=== PATIENT | female | born 1940 | race Caucasian/White ===

== ENCOUNTER 2022-03-23 12:36 | Emergency (ER) | payer MEDICARE, OTHER, SELFPAY ==
--- NOTE | ~2022-03-23 | CT_ITS ---
EXAMINATION: CT ABDOMEN AND PELVIS WITHOUT CONTRAST CLINICAL INFORMATION: Diarrhea and abdominal pain COMPARISON: None TECHNIQUE: Multidetector volumetric imaging was performed from the superior aspect of the liver through the pubic symphysis. Sagittal and coronal reformatted images were obtained on the technologist's workstation. This CT examination was performed using dose optimization techniques as appropriate, variously including the following: *Automated exposure control *Adjustment of mA and/or kV according to patient size (this includes techniques or standardized protocols for targeted exams where dose is matched to indication/reason for exam; i.e. extremities or head) *Use of iterative reconstruction technique DLP: 755 mGy-cm FINDINGS: LUNG BASES: The visualized lung bases are unremarkable. 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 LIVER, GALLBLADDER, AND BILIARY TREE: The liver is normal in size, shape, and attenuation. No focal hepatic lesion or biliary ductal dilatation is present. The gallbladder contains calcifications present at the fundus, most likely gallstones. The gallbladder is otherwise unremarkable with no evidence of gallbladder wall thickening, or obvious pericholecystic inflammatory changes. PANCREAS: Unremarkable. SPLEEN: Unremarkable. ADRENAL GLANDS: A water density 2.5 cm ovoid left adrenal mass is present consistent with a benign adenoma. KIDNEYS AND URETERS: The kidneys are normal in size, shape, and attenuation. A 1.4 cm water density cyst is noted arising from the upper pole right kidney best appreciated on sagittal image 42. No further imaging or follow-up is needed. No hydronephrosis, hydroureter, or calculi seen. No perinephric stranding. BLADDER: Unremarkable. GASTROINTESTINAL TRACT: The small and large bowel are unremarkable. The appendix is unremarkable. ABDOMINAL WALL: No significant hernia is appreciated. LYMPH NODES: No retroperitoneal lymphadenopathy. VASCULAR: Marked aorta iliofemoral atherosclerotic change is present with calcified plaque but no aneurysm. PELVIC VISCERA: Unremarkable. OSSEOUS STRUCTURES: Mild degenerative changes present spine. CT/CT abdomen pelvis wo con IMPRESSION: 1. Calcifications in the gallbladder most likely gallstones rather than a calcified mass. Ultrasound could be performed for further evaluation. 2. Benign left adrenal adenoma. 3. A cause for the patient's diarrhea and abdominal pain has not been found. Fleischner guidelines were followed.
[2022-03-23 12:48] VITALS: BP 119/96; BP 128/90; PULSE 51; PULSE 85; RESP 16; TEMP 36.4; O2SAT 95; O2SAT 97; BMI 35.2
--- NOTE | 2022-03-23 12:49 | ED_ITS ---
HPI - General Adult General Chief complaint: Nausea/Vomiting/Diarrhea Stated complaint: DIARRHEA X'S 3 DAYS Time Seen by Provider: 03/23/22 12:49 Source: patient and EMS Mode of arrival: EMS Limitations: other (patient is confused at baseline) History of Present Illness HPI narrative: Patient is an 81 year old female presenting to the emergency department today with diarrhea x3 days. Patient states that she feels fine and has no complaints. Patient's states that the patient has dementia and has had diarrhea and cold sweats over the last 2 days. He states that the patient has been taking her insulin but she does not remember due to her dementia. Patient denies any dizziness, lightheadedness, abdominal pain, nausea, vomiting, fever, chills, blurry vision, double vision, loss of vision, chest pain, difficulty breathing, shortness of breath, back pain, night sweats, pain with urination, increased urinary frequency, increased urinary urgency, blood in her urine or stool, syncope or a near syncopal episode, recent trauma or falls, bowel incontinence, bladder incontinence, bowel retention, bladder retention, or any other complaints at this time. Onset (ago): day(s) (2) Severity: mild Severity scale (1-10): 1 Relieving factors: none Exacerbating factors: none Associated symptoms: denies other symptoms Treatments prior to arrival: none Related Data Allergies Allergy/AdvReac Type Severity Reaction Status Date / Time Penicillins Allergy Mild UNKNOWN Unverified 07/10/20 15:26 penicillin G Allergy Unknown Verified 12/26/18 00:00 Review of Systems Constitutional: Constitutional: Reports no additional constitutional complaints, Denies chills, Denies fever(s) and Denies night sweats Eyes: Eyes: Reports no additional eye complaints, Denies blurry vision, Denies change in vision, Denies diplopia, Denies eye discharge, Denies loss of vision and Denies eye pain ENT: Denies dizziness Cardiovascular: Cardiovascular: Reports no additional cardiovascular complaints, Denies chest pain, Denies lightheadedness, Denies Loss of Consciousness and Denies dyspnea Respiratory: Respiratory: Reports no additional respiratory complaints and Denies dyspnea Gastrointestinal: Gastrointestinal: Reports no additional gastrointestinal complaints, Denies abdominal pain, Denies melena, Denies hematochezia, Denies change in bowel habits, Denies change in stool character and Reports diarrhea Genitourinary: Genitourinary: Denies hematuria, Denies urinary frequency, Denies dysuria, Denies urinary incontinence, Denies urinary hesitancy and Denies urinary urgency Musculoskeletal: Musculoskeletal: Reports no additional musculoskeletal complaints, Denies numbness and Denies tingling Neurologic: Reports confusion, Denies dizziness, Denies loss of vision, Denies numbness and Denies tingling Psychiatric: Psychiatric: Reports no additional psychiatric complaints and Reports confusion Endocrine: Endocrine: Reports no additional endocrine complaints Hematologic/Lymphatic: Hematologic/Lymphatic: Reports no additional hematologic/lymphatic complaints Allergic/Immunologic: Allergic/Immunologic: Reports no additional allergic/immunologic complaints [facility] Past Medical History Attestation statement: The following information was validated with the patient. Source: old records reviewed Social History Social History Alcohol intake: never Smoked in Last 30 Days: No Use of substances other than those prescribed or required for medical reasons: No Advance Directives: Yes Advance Directives Information Provided: No Advance Directives on File: No Physical Exam ED Vital Signs: Vital Signs - 24 hr 03/23/22 12:48 03/23/22 13:38 03/23/22 13:59 Temperature 97.6 F 98.1 F Pulse Rate 85 85 90 Respiratory Rate 16 14 18 Blood Pressure 119/96 H 129/71 129/71 Pulse Oximetry 95 94 94 03/23/22 15:55 Temperature 97.5 F Pulse Rate 84 Respiratory Rate 18 Blood Pressure 143/79 H Pulse Oximetry 96 BMI result Body Mass Index 35.2 Const General: cooperative, no acute distress, alert, awake and confusion Nutritional Appearance: well nourished Orientation/consciousness: patient oriented x3 and confusion Limitations: no limitations HENMT Head: Yes normal to inspection and Yes atraumatic Ears: hearing grossly normal bilaterally and external ears normal General nose exam: Normal external nose present, no nasal discharge noted and no epistaxis Face and sinus: Yes normal facial exam, No abrasion and No laceration Mouth: Normal oral and palatal mucosa present, no drooling and no muffled voice Eyes General: appearance normal, both eyes and all related structures Periorbital: periorbital findings normal Eyelids: Yes eyelids normal Conjunctivae: conjunctivae normal Pupils: Equal, round and reactive pupils present EOM: EOMs intact bilaterally Neck Neck: Yes normal visual inspection, Yes full ROM and Yes no lymphadenopathy Chest Chest palpation & inspection: normal inspection of the chest Resp Effort & Inspection: normal respiratory effort and able to speak in complete sentences Auscultation: clear to auscultation bilaterally Cardio Rate: regular rate Rhythm: regular rhythm GI Inspection: Yes normal to inspection Palpation (GI): Soft to palpation, not firm, nontender, no guarding and not rigid Neuro General: patient oriented x3, moves all extremities and confusion Cranial nerves: Yes Equal, round and reactive pupils present Cognition (Neuro): normal cognition Motor exam (neuro): 5/5 motor strength present throughout Sensory Exam: Normal double simultaneous stimulation for sensation Coordination: [id number] test normal Extrem General: Yes normal to inspection, Yes full ROM and Yes capillary refill normal Psych Appearance: grossly normal Mental Status: mental status grossly normal Affect: normal affect Attitude: cooperative Thought process: Normal thought process present Thought content: Normal thought content present Insight: Good insight present (Psych) Medical Decision Making MDM Narrative Medical decision making narrative: Patient is an 81 year old female presenting to the emergency department today with diarrhea. Patient's physical exam showed a pleasantly confused individual. Patient's blood work showed a slightly elevated WBC count at 11.8, slightly elevated creatinine at 1.61, and an elevated glucose at 432. Patient's sodium was 133 however, adjusted for the elevated glucose, it is normal. Patient's abdominal CT showed no acute process. Patient was given IV fluids. I explained my physical exam findings as well as all test results to the patient and the yamilka petty's . I answered all questions asked by the patient and the patient's . The patient and her were adamant that the patient was not to stay in the hospital. Patient refused to have her blood sugar checked before being discharged. I stressed the importance of the patient taking her medication as prescribed. I stressed the importance of the patient following up with her primary care provider. I stressed the importance of the patient returning to the emergency department immediately if her symptoms were to worsen or if she were to develop any dizziness, shortness of breath, difficulty breathing, chest pain, blurry vision, loss of vision, nausea, vomiting, abdominal pain, fever, chills, back pain, or any other complaints. Patient and the patient's verbalized agreement and understanding with this treatment plan and discharge. Differential Diagnosis Differential Diagnosis: diarrhea, gastroenteritis, dehydration Medical Records Medical records reviewed: Yes I reviewed the patient's medical records. Lab Data Lab results reviewed: Yes I reviewed the patient's lab results. Result diagrams: 03/23/22 13:18 03/23/22 13:18 Labs: Lab Results 03/23/22 03/23/22 03/23/22 Range/Units 12:55 13:18 13:18 WBC 11.8 H (4.8-10.8) X10*3/uL RBC 5.17 (4.20-5.50) X10*6/uL Hgb 14.6 (12.0-16.0) g/dl Hct 44.0 (37.0-47.0) % MCV 85.1 (80.0-98.0) fL MCH 28.2 (27.0-33.0) pg MCHC 33.2 (31.0-35.0) g/dl RDW 13.2 (11.0-16.0) % Plt Count 255 (160-400) X10*3/uL MPV 10.2 (9.4-12.3) fL Immature Gran % (Auto) 0.7 H (0.0-0.4) % Neut % (Auto) 83.5 H (45-73) % Lymph % (Auto) 9.6 L (20-40) % Brewster % (Auto) 5.2 (2-11) % Eos % (Auto) 0.7 (0-4) % Baso % (Auto) 0.3 (0-2) % Lymph # (Auto) 1.1 L (1.2-4.9) X10*3/uL Brewster # (Auto) 0.6 (0.1-1.2) X10*3/uL Eos # (Auto) 0.1 (0.0-0.4) X10*3/uL Baso # (Auto) 0.0 (0.0-0.2) X10*3/uL Abs Immat Gran (auto) 0.08 H (0.00-0.03) X10*3/uL Absolute Neuts (auto) 9.9 H (2.0-8.3) x10*3/uL Absolute Nucleated RBC 0.000 (0.0-0.012) X10*3/uL Nucleated RBC % (auto) 0.0 (0.0-0.2) /100WBC Sodium 133 L (135-145) mmol/L Potassium 3.8 (3.3-5.1) mmol/L Chloride 97 (96-108) mmol/L Carbon Dioxide 23 (22-29) mmol/L Anion Gap 17 (12-20) BUN 30 H (9-16) mg/dL Creatinine 1.61 H (0.5-1.4) mg/dL Estim Creat Clear Calc 26.4 Estimated GFR 31 POC Glucose 370 H* (60-115) mg/dL Random Glucose 432 H* (60-115) mg/dL Lactic Acid (0.5-2.0) mmol/L Calcium 10.4 H (8.4-10.2) mg/dL Magnesium 1.8 (1.6-2.6) mg/dL Total Bilirubin 1.1 H (0.0-1.0) mg/dL AST 14 (5-31) U/L ALT 12 (0-31) U/L Alkaline Phosphatase 68 (39-117) U/L Total Protein 7.1 (6.5-8.0) g/dL Albumin 4.3 (3.5-5.0) g/dL Lipase 35 (8-78) U/L COVID-19 (KIM) (Negative) COVID-19 Clin Com Influenza Type A (BISMARK) (Negative) Influenza Type B (BISMARK) (Negative) Influenza A & B Note 03/23/22 03/23/22 03/23/22 Range/Units 13:18 13:43 13:43 WBC (4.8-10.8) X10*3/uL RBC (4.20-5.50) X10*6/uL Hgb (12.0-16.0) g/dl Hct (37.0-47.0) % MCV (80.0-98.0) fL MCH (27.0-33.0) pg MCHC (31.0-35.0) g/dl RDW (11.0-16.0) % Plt Count (160-400) X10*3/uL MPV (9.4-12.3) fL Immature Gran % (Auto) (0.0-0.4) % Neut % (Auto) (45-73) % Lymph % (Auto) (20-40) % Brewster % (Auto) (2-11) % Eos % (Auto) (0-4) % Baso % (Auto) (0-2) % Lymph # (Auto) (1.2-4.9) X10*3/uL Brewster # (Auto) (0.1-1.2) X10*3/uL Eos # (Auto) (0.0-0.4) X10*3/uL Baso # (Auto) (0.0-0.2) X10*3/uL Abs Immat Gran (auto) (0.00-0.03) X10*3/uL Absolute Neuts (auto) (2.0-8.3) x10*3/uL Absolute Nucleated RBC (0.0-0.012) X10*3/uL Nucleated RBC % (auto) (0.0-0.2) /100WBC Sodium (135-145) mmol/L Potassium (3.3-5.1) mmol/L Chloride (96-108) mmol/L Carbon Dioxide (22-29) mmol/L Anion Gap (12-20) BUN (9-16) mg/dL Creatinine (0.5-1.4) mg/dL Estim Creat Clear Calc Estimated GFR POC Glucose (60-115) mg/dL Random Glucose (60-115) mg/dL Lactic Acid 1.7 (0.5-2.0) mmol/L Calcium (8.4-10.2) mg/dL Magnesium (1.6-2.6) mg/dL Total Bilirubin (0.0-1.0) mg/dL AST (5-31) U/L ALT (0-31) U/L Alkaline Phosphatase (39-117) U/L Total Protein (6.5-8.0) g/dL Albumin (3.5-5.0) g/dL Lipase (8-78) U/L COVID-19 (KIM) Negative (Negative) COVID-19 Clin Com See Note Influenza Type A (BISMARK) Negative (Negative) Influenza Type B (BISMARK) Negative (Negative) Influenza A & B Note See Note Imaging Data CT scan - abdomen: Attestation: I personally reviewed and interpreted this imaging study as follows: My impression: No acute process. Radiologist's impression: EXAMINATION: CT ABDOMEN AND PELVIS WITHOUT CONTRAST? CLINICAL INFORMATION: Diarrhea and abdominal pain? COMPARISON: None? TECHNIQUE: Multidetector volumetric imaging was performed from the superior aspect of the liver through the pubic symphysis. Sagittal and coronal reformatted images were obtained on the technologist's workstation.? This CT examination was performed using dose optimization techniques as appropriate, variously including the following: *Automated exposure control *Adjustment of mA and/or kV according to patient size (this includes techniques or standardized protocols for targeted exams where dose is matched to indication/reason for exam; i.e. extremities or head) *Use of iterative reconstruction technique DLP: 755 mGy-cm FINDINGS: LUNG BASES: The visualized lung bases are unremarkable. 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 LIVER, GALLBLADDER, AND BILIARY TREE: The liver is normal in size, shape, and attenuation. No focal hepatic lesion or biliary ductal dilatation is present. The gallbladder contains calcifications present at the fundus, most likely gallstones. The gallbladder is otherwise unremarkable with no evidence of? gallbladder wall thickening, or obvious pericholecystic inflammatory changes.? PANCREAS: Unremarkable.? SPLEEN: Unremarkable.? ADRENAL GLANDS: A water density 2.5 cm ovoid left adrenal mass is present consistent with a benign adenoma.? KIDNEYS AND URETERS: The kidneys are normal in size, shape, and attenuation. A 1.4 cm water density cyst is noted arising from the upper pole right kidney best appreciated on sagittal image 42. No further imaging or follow-up is needed. No hydronephrosis, hydroureter, or calculi seen. No perinephric stranding. ? BLADDER: Unremarkable.? GASTROINTESTINAL TRACT: The small and large bowel are unremarkable. The appendix is unremarkable.? ABDOMINAL WALL: No significant hernia is appreciated.? LYMPH NODES: No retroperitoneal lymphadenopathy. VASCULAR: Marked aorta iliofemoral atherosclerotic change is present with calcified plaque but no aneurysm. PELVIC VISCERA: Unremarkable.? OSSEOUS STRUCTURES: Mild degenerative changes present spine.? CT/CT abdomen pelvis wo con IMPRESSION: 1.? Calcifications in the gallbladder most likely gallstones rather than a calcified mass. Ultrasound could be performed for further evaluation. 2.? Benign left adrenal adenoma. 3.? A cause for the patient's diarrhea and abdominal pain has not been found.? ? Fleischner guidelines were followed. Dictated By: Edinson Alvarenga MD Signed By: Electronically signed by Edinson Alvarenga MD 03/23/22 8659 Discharge Plan Discharge Clinical Impression: Gastroenteritis Patient Disposition: Home, Self-Care Instructions: Gastroenteritis (DC) Additional Instructions: Follow up with your primary care provider. Return to the emergency department immediately if your symptoms worsen or if you develop any dizziness, shortness of breath, difficulty breathing, chest pain, blurry vision, loss of vision, nausea, vomiting, abdominal pain, fever, chills, back pain, or any other complaints. Referrals: Andreas Mora MD [Primary Care Provider] - Interventions: ED Discharge Assessment Last Done: 03/23/22 16:45 Discharge Date/Time: 03/23/22 16:46 Print Language: Bangladeshi
[2022-03-23 13:20] LABS: Glucose, Whole Blood 370 mg/dL (60-115)
[2022-03-23 13:27] LABS: Basophils Percent Auto 0.3 % (0-2); Eosinophils Absolute Auto 0.1 X10*3/uL (0.0-0.4); Eosinophils Percent Auto 0.7 % (0-4); Hemoglobin 14.6 g/dl (12.0-16.0); Imm Gran Abs Auto 0.08 X10*3/uL (0.00-0.03); Imm Gran Pct Auto 0.7 % (0.0-0.4); Lymphocytes Absolute Auto 1.1 X10*3/uL (1.2-4.9); Lymphocytes Percent Auto 9.6 % (20-40); MANUAL DIFF FLAG NO; Mean Corpuscular HGB Conc 33.2 g/dl (31.0-35.0); Mean Corpuscular Hemoglobin 28.2 pg (27.0-33.0); Mean Corpuscular Volume 85.1 fL (80.0-98.0); Mean Platelet Volume 10.2 fL (9.4-12.3); Monocytes Absolute Auto 0.6 X10*3/uL (0.1-1.2); Monocytes Percent Auto 5.2 % (2-11); Neutrophils Absolute Auto 9.9 x10*3/uL (2.0-8.3); Neutrophils Percent Auto 83.5 % (45-73); Platelet Count 255 X10*3/uL (160-400); Red Blood Count 5.17 X10*6/uL (4.20-5.50); Red Cell Distribution Width 13.2 % (11.0-16.0); White Blood Count 11.8 X10*3/uL (4.8-10.8)
[2022-03-23 13:38] VITALS: BP 129/71; PULSE 85; RESP 14; TEMP 36.7; O2SAT 94
[2022-03-23 13:43] LABS: Lactic Acid 1.7 mmol/L (0.5-2.0)
[2022-03-23 13:50] LABS: Alanine Aminotransferase 12 U/L (0-31); Albumin Level 4.3 g/dL (3.5-5.0); Alkaline Phosphatase 68 U/L (39-117); Anion Gap 17 (12-20); Aspartate Amino Transferase 14 U/L (5-31); Bilirubin Total 1.1 mg/dL (0.0-1.0); Blood Urea Nitrogen 30 mg/dL (9-16); Calcium 10.4 mg/dL (8.4-10.2); Carbon Dioxide 23 mmol/L (22-29); Chloride 97 mmol/L (96-108); Creatinine Clr Calc Pharmacy 26.4; Estimated Glomerular Filt Rate 31; Glucose Random 432 mg/dL (60-115); Lipase 35 U/L (8-78); Magnesium 1.8 mg/dL (1.6-2.6); Potassium 3.8 mmol/L (3.3-5.1); Sodium 133 mmol/L (135-145); Total Protein 7.1 g/dL (6.5-8.0)
[2022-03-23] MEDS: 0.9 % Sodium Chloride 1,000 ML 999 ML IVCONT (13:58)
[2022-03-23 13:59] VITALS: BP 129/71; PULSE 90; RESP 18; O2SAT 94
[2022-03-23 14:21] LABS: COVID-19 Test Negative (Negative)
[2022-03-23 14:32] LABS: Influenza A Negative (Negative); Influenza B2 Negative (Negative)
[2022-03-23 15:55] VITALS: BP 143/79; PULSE 84; RESP 18; TEMP 36.4; O2SAT 96
--- NOTE | 2022-03-23 16:09 | PC.NURSE ---
PT PULLED OUT IV WHILE GETTING OUT OF BED. PT ASSISTED BACK TO BED MULTIPLE TIMES. RN AWARE
== END 2022-03-23 16:46 | disposition home or self-care (01) ==
PROVIDERS: Physician Assistant Medical; Emergency Provider Emergency Medicine; PCP Internal Medicine
DX: K52.9 Noninfective gastroenteritis and colitis, unspecified (principal); R11.2 Nausea with vomiting, unspecified; Z20.822 Contact with and (suspected) exposure to COVID-19
CPT/HCPCS: 74176; 80053; 82947; 83605; 83690; 83735; 85025; 87040; 87502; 87635; 96360; 99284

== ENCOUNTER 2022-04-05 13:34 | Inpatient (IN) | payer MEDICARE, OTHER, SELFPAY ==
--- NOTE | ~2022-04-05 | CT_ITS ---
EXAMINATION: NONCONTRAST HEAD CT NONCONTRAST CERVICAL SPINE CT INDICATION INFORMATION: Fall with pain COMPARISON: Head CT 06/01/2020 TECHNIQUE: Separate noncontrast CT examinations of the head and cervical spine were performed. Coronal and sagittal images were created for each examination at the technologist workstation. This CT examination was performed using dose optimization techniques as appropriate, variously including the following: *Automated exposure control *Adjustment of mA and/or kV according to patient size (this includes techniques or standardized protocols for targeted exams where dose is matched to indication/reason for exam; i.e. extremities or head) *Use of iterative reconstruction technique DLP: 1394 mGy-cm FINDINGS: HEAD: No intra or extra-axial fluid collection, hemorrhage, or mass. No ventriculomegaly. No midline shift or herniation. Basal cisterns are patent. Delgado-white matter differentiation is maintained. 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 Small remote lacunar infarct in the right caudate and lentiform nucleus, unchanged. Proportional prominence of the ventricles and sulcal spaces is consistent with mild volume loss. Patchy periventricular and deep white matter hypoattenuation is consistent with moderate small vessel ischemic changes. No calvarial fracture or soft tissue abnormality. The mastoid air cells and visualized portions of the paranasal sinuses are well aerated. Right supraclinoid ICA stent. Status post bilateral lens extractions. CERVICAL SPINE: Alignment: Minimal grade 1 anterolisthesis at C7-T1 with facet joint ankylosis at this level. No additional subluxation. Vertebra: No acute fracture. No prevertebral soft tissue swelling. Degenerative disc disease: Acquired ankylosis of the C6-C7 vertebral bodies and facets at C7-T1. Multilevel degenerative disc disease characterized by multilevel disc height loss with endplate sclerosis and proliferative change most advanced at C5-C6. Advanced multilevel bilateral facet arthrosis and uncovertebral spurring. Other findings: No cervical lymphadenopathy. Visualized major salivary glands and thyroid gland are unremarkable. Visualized lung apices are clear. CT/CT cervical spine wo con IMPRESSION: 1. No intracranial hemorrhage, calvarial fracture, or other acute intracranial abnormality. 2. No traumatic subluxation or acute cervical spine fracture.
--- NOTE | ~2022-04-05 | CT_ITS ---
EXAMINATION: CT CHEST, ABDOMEN PELVIS WITHOUT CONTRAST. CLINICAL INFORMATION: Fall and pain. COMPARISON: None TECHNIQUE: 5 mm thin axial and reformatted 3 mm thin sagittal and coronal images of chest, abdomen and pelvis were obtained without contrast. DLP 1679 FINDINGS: Chest: The lungs are well-expanded and clear of acute pneumonic process. No contusion or mass seen. There are punctate 2 mm subpleural based noncalcified nodule right upper lobe axial image 176/9, along the right minor fissure axial image 255/9. Or calcification. There is minimal dependent right basilar atelectasis or scarring. There is no pleural effusion or thickening. The thyroid lobes are symmetrical and normal. Central trachea and the bronchi widely patent. Heart size and the great vessels are normal caliber. There are small pretracheal lymph nodes. Moderate coronary artery calcifications are present. There are no abnormal axillary lymph nodes. The chest wall is unremarkable. Abdomen and pelvis: The liver is normal size, homogeneous density and contour. No focal lesion or intrahepatic ductal dilatation seen. There are multiple small gallstones without wall thickening. Visualized spleen, pancreas and right adrenal gland is unremarkable. There is a left adrenal lesion measuring 3 cm and approximately 2 Hounsfield units likely a small cyst Both kidneys are normal size, shape and position. No radiopaque renal calculi or hydronephrosis seen. Is no perinephric stranding there are vascular calcifications in left renal hilum. There is no hydronephrosis. The abdominal aorta is of normal caliber. No retroperitoneal lymph nodes or mass seen. No intra-abdominal mass or hematoma. There is scattered stool and gas seen throughout the colon without significant distention. The small bowel loops are normal caliber. Appendix is normal caliber. No obstruction or free air seen. The abdominal wall appears unremarkable. Imaging through the pelvis reveals unremarkable urinary bladder. The uterus is anteverted and appears unremarkable. Bone windows reveal no aggressive lytic or sclerotic process there is mild degenerative facet joint arthropathy L5-S1, L4-L5, L3-L4 disc levels. No lytic or sclerotic process seen. There are bilateral SI joint changes with vacuum disc phenomena. CT/CT abdomen pelvis wo con IMPRESSION: No acute process seen in the chest, abdomen or pelvis. There is a right basilar chronic atelectasis or scarring. Cholelithiasis without wall thickening. No acute intra-abdominal process seen.
--- NOTE | ~2022-04-05 | CT_ITS ---
EXAMINATION: NONCONTRAST HEAD CT NONCONTRAST CERVICAL SPINE CT INDICATION INFORMATION: Fall with pain COMPARISON: Head CT 06/01/2020 TECHNIQUE: Separate noncontrast CT examinations of the head and cervical spine were performed. Coronal and sagittal images were created for each examination at the technologist workstation. This CT examination was performed using dose optimization techniques as appropriate, variously including the following: *Automated exposure control *Adjustment of mA and/or kV according to patient size (this includes techniques or standardized protocols for targeted exams where dose is matched to indication/reason for exam; i.e. extremities or head) *Use of iterative reconstruction technique DLP: 1394 mGy-cm FINDINGS: HEAD: No intra or extra-axial fluid collection, hemorrhage, or mass. No ventriculomegaly. No midline shift or herniation. Basal cisterns are patent. Delgado-white matter differentiation is maintained. 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 Small remote lacunar infarct in the right caudate and lentiform nucleus, unchanged. Proportional prominence of the ventricles and sulcal spaces is consistent with mild volume loss. Patchy periventricular and deep white matter hypoattenuation is consistent with moderate small vessel ischemic changes. No calvarial fracture or soft tissue abnormality. The mastoid air cells and visualized portions of the paranasal sinuses are well aerated. Right supraclinoid ICA stent. Status post bilateral lens extractions. CERVICAL SPINE: Alignment: Minimal grade 1 anterolisthesis at C7-T1 with facet joint ankylosis at this level. No additional subluxation. Vertebra: No acute fracture. No prevertebral soft tissue swelling. Degenerative disc disease: Acquired ankylosis of the C6-C7 vertebral bodies and facets at C7-T1. Multilevel degenerative disc disease characterized by multilevel disc height loss with endplate sclerosis and proliferative change most advanced at C5-C6. Advanced multilevel bilateral facet arthrosis and uncovertebral spurring. Other findings: No cervical lymphadenopathy. Visualized major salivary glands and thyroid gland are unremarkable. Visualized lung apices are clear. CT/CT head/brain wo con IMPRESSION: 1. No intracranial hemorrhage, calvarial fracture, or other acute intracranial abnormality. 2. No traumatic subluxation or acute cervical spine fracture.
[2022-04-05 14:19] VITALS: BP 142/76; PULSE 78; RESP 18; TEMP 36.3; O2SAT 94
[2022-04-05 14:20] VITALS: BP 130/68; PULSE 100; O2SAT 97; BMI 28.3
--- NOTE | 2022-04-05 14:20 | ED_ITS ---
HPI - General Adult General Chief complaint: Fall <YARIEL Anderson - Last Filed: 04/05/22 17:32> Stated complaint: fall/low back pain <YARIEL Anderson - Last Filed: 04/05/22 17:32> Time Seen by Provider: 04/05/22 14:20 <YARIEL Anderson Last Filed: 04/05/22 17:32> Source: patient, family () and EMS <YARIEL Anderson - Last Filed: 04/05/22 17:32> Mode of arrival: EMS <YARIEL Anderson Last Filed: 04/05/22 17:32> Limitations: other (patient has a history of dementia) <YARIEL Anderson Last Filed: 04/05/22 17:32> History of Present Illness HPI narrative: Patient is an 81 year old female presenting to the emergency department today with back pain after a mechanical fall. Patient's states that the p atient tripped and fell 2 days ago but continues to complain of back pain. Patient's states that the patient has dementia but did not strike her head with the fall or have any loss of consciousness. Patient denies any dizziness, lightheadedness, abdominal pain, nausea, vomiting, fever, chills, blurry vision, double vision, loss of vision, chest pain, difficulty breathing, shortness of breath, night sweats, pain with urination, increased urinary frequency, increased urinary urgency, blood in her urine or stool, syncope or a near syncopal episode, recent trauma or falls, bowel incontinence, bladder incontinence, bowel retention, bladder retention, or any other complaints at this time. <YARIEL Anderson - Last Filed: 04/05/22 17:32> Onset (ago): day(s) (2) <YARIEL Anderson - Last Filed: 04/05/22 17:32> Location: back <YARIEL Anderson Last Filed: 04/05/22 17:32> Radiation: non-radiation <YARIEL Anderson Last Filed: 04/05/22 17:32> Severity: mild <YARIEL Anderson Last Filed: 04/05/22 17:32> Severity scale (1-10): 3 <YARIEL Anderson - Last Filed: 04/05/22 17:32> Quality: dull <YARIEL Anderson - Last Filed: 04/05/22 17:32> Pain Consistency: constant <YARIEL Anderson - Last Filed: 04/05/22 17:32> Relieving factors: none <YARIEL Anderson - Last Filed: 04/05/22 17:32> Exacerbating factors: none <YARIEL Anderson - Last Filed: 04/05/22 17:32> Associated symptoms: denies other symptoms <YARIEL Anderson - Last Filed: 04/05/22 17:32> Treatments prior to arrival: none <YARIEL Anderson - Last Filed: 04/05/22 17:32> Related Data Allergies/adverse reactions: Allergies Allergy/AdvReac Type Severity Reaction Status Date / Time Penicillins Allergy Mild UNKNOWN Unverified 07/10/20 15:26 penicillin G Allergy Unknown Verified 12/26/18 00:00 <YARIEL Anderson - Last Filed: 04/05/22 17:32> Review of Systems Constitutional: Constitutional: Reports no additional constitutional complaints, Denies chills, Denies fever(s) and Denies night sweats <YARIEL Anderson - Last Filed: 04/05/22 17:32> Eyes: Eyes: Reports no additional eye complaints, Denies blurry vision, Denies change in vision, Denies diplopia, Denies eye discharge, Denies loss of vision and Denies eye pain <YARIEL Anderson - Last Filed: 04/05/22 17:32> ENT: Denies dizziness <YARIEL Anderson - Last Filed: 04/05/22 17:32> Cardiovascular: Cardiovascular: Reports no additional cardiovascular complaints, Denies chest pain, Denies lightheadedness, Denies Loss of Consciousness and Denies dyspnea <YARIEL Anderson - Last Filed: 04/05/22 17:32> Respiratory: Respiratory: Reports no additional respiratory complaints and Denies dyspnea <YARIEL Anderson - Last Filed: 04/05/22 17:32> Gastrointestinal: Gastrointestinal: Reports no additional gastrointestinal complaints, Denies abdominal pain, Denies melena, Denies hematochezia, Denies change in bowel habits and Denies change in stool character <YARIEL Anderson - Last Filed: 04/05/22 17:32> Genitourinary: Genitourinary: Denies hematuria, Denies urinary frequency, Denies dysuria, Denies urinary incontinence, Denies urinary hesitancy and Denies urinary urgency <YARIEL Anderson - Last Filed: 04/05/22 17:32> Musculoskeletal: Musculoskeletal: Reports no additional musculoskeletal complaints, Reports back pain, Denies numbness and Denies tingling <YARIEL Anderson - Last Filed: 04/05/22 17:32> Neurologic: Denies dizziness, Denies loss of vision, Denies numbness and Denies tingling <YARIEL Anderson - Last Filed: 04/05/22 17:32> Psychiatric: Psychiatric: Reports no additional psychiatric complaints <YARIEL Anderson - Last Filed: 04/05/22 17:32> Endocrine: Endocrine: Reports no additional endocrine complaints <YARIEL Anderson - Last Filed: 04/05/22 17:32> Hematologic/Lymphatic: Hematologic/Lymphatic: Reports no additional hematologic/lymphatic complaints <YARIEL Anderson - Last Filed: 04/05/22 17:32> Allergic/Immunologic: Allergic/Immunologic: Reports no additional allergic/immunologic complaints <YARIEL Anderson - Last Filed: 04/05/22 17:32> PMFSH Past Medical History Attestation statement: The following information was validated with the patient. <YARIEL Duff - Last Filed: 04/05/22 17:32> Source: old records reviewed <YARIEL Anderson - Last Filed: 04/05/22 17:32> Social History Social History: Social History Alcohol intake: never Advance Directives: No Advance Directives Information Provided: No <YARIEL Anderson - Last Filed: 04/05/22 17:32> Physical Exam ED Vital Signs: Vital Signs - 24 hr 04/05/22 14:19 Temperature 97.4 F Pulse Rate 78 Respiratory Rate 18 Blood Pressure 142/76 H Pulse Oximetry 94 Oxygen Delivery Method Room Air BMI result Body Mass Index 28.3 <YARIEL Anderson - Last Filed: 04/05/22 17:32> Vital Signs - 24 hr 04/05/22 14:19 Temperature 97.4 F Pulse Rate 78 Respiratory Rate 18 Blood Pressure 142/76 H Pulse Oximetry 94 Oxygen Delivery Method Room Air BMI result Body Mass Index 28.3 <Conchita Adame PA - Last Filed: 04/05/22 18:40> Const General: cooperative, no acute distress, alert and awake <YARIEL Anderson - Last Filed: 04/05/22 17:32> Nutritional Appearance: well nourished <YARIEL Anderson - Last Filed: 04/05/22 17:32> Orientation/consciousness: oriented to person and oriented to place <YARIEL Anderson - Last Filed: 04/05/22 17:32> Limitations: no limitations <YARIEL Anderson - Last Filed: 04/05/22 17:32> HENMT Head: Yes normal to inspection and Yes atraumatic <YARIEL Anderson - Last Filed: 04/05/22 17:32> Ears: hearing grossly normal bilaterally and external ears normal <YARIEL Anderson - Last Filed: 04/05/22 17:32> General nose exam: Normal external nose present, no nasal discharge noted and no epistaxis <YARIEL Anderson - Last Filed: 04/05/22 17:32> Face and sinus: Yes normal facial exam, No abrasion and No laceration <YARIEL Anderson - Last Filed: 04/05/22 17:32> Mouth: Normal oral and palatal mucosa present, no drooling and no muffled voice <YARIEL Anderson - Last Filed: 04/05/22 17:32> Eyes General: appearance normal, both eyes and all related structures <YARIEL Anderson - Last Filed: 04/05/22 17:32> Periorbital: periorbital findings normal <YARIEL Anderson - Last Filed: 04/05/22 17:32> Eyelids: Yes eyelids normal <YARIEL Anderson - Last Filed: 04/05/22 17:32> Conjunctivae: conjunctivae normal <YARIEL Anderson - Last Filed: 04/05/22 17:32> Pupils: Equal, round and reactive pupils present <Pilar MayenYARIEL - Last Filed: 04/05/22 17:32> EOM: EOMs intact bilaterally <Pilar SosaYARIEL phillip - Last Filed: 04/05/22 17:32> Neck Neck: Yes normal visual inspection, Yes full ROM and Yes no lymphadenopathy <Pilar SosaYARIEL phillip - Last Filed: 04/05/22 17:32> Chest Chest palpation & inspection: normal inspection of the chest <Pilar SosaYARIEL phillip - Last Filed: 04/05/22 17:32> Resp Effort & Inspection: normal respiratory effort and able to speak in complete sentences <Pilar SosaYARIEL phillip - Last Filed: 04/05/22 17:32> Auscultation: clear to auscultation bilaterally <Pilar SosaYARIEL phillip - Last Filed: 04/05/22 17:32> Cardio Rate: regular rate <Pilarsalud SosaYARIEL phillip - Last Filed: 04/05/22 17:32> Rhythm: regular rhythm <Pilar Sosamarjan IA - Last Filed: 04/05/22 17:32> GI Inspection: Yes normal to inspection <Pilar SosaYARIEL phillip - Last Filed: 04/05/22 17:32> General: Yes no CVA tenderness <Pilar SosaYARIEL phillip - Last Filed: 04/05/22 17:32> Back/Spine/Pelvis Back: no CVA tenderness <Pilar SosaYARIEL phillip - Last Filed: 04/05/22 17:32> Cervical Spine: normal cervical lordosis and cervical ROM normal <Pilar SosaYARIEL phillip - Last Filed: 04/05/22 17:32> Thoracic/Lumbar Spine: thoracic and lumbar spine normal to inspection <Pilar SosaYARIEL phillip - Last Filed: 04/05/22 17:32> Neuro General: oriented to person, oriented to place and moves all extremities <Pilarsalud SosaYARIEL phillip - Last Filed: 04/05/22 17:32> Cranial nerves: Yes Equal, round and reactive pupils present <Pilar SosaYARIEL phillip - Last Filed: 04/05/22 17:32> Cognition (Neuro): normal cognition <Pilar YARIEL Mayen - Last Filed: 04/05/22 17:32> Motor exam (neuro): 5/5 motor strength present throughout <YARIEL Anderson - Last Filed: 04/05/22 17:32> Sensory Exam: Normal double simultaneous stimulation for sensation <YARIEL Anderson - Last Filed: 04/05/22 17:32> Coordination: [id number] test normal <YARIEL Anderson - Last Filed: 04/05/22 17:32> Extrem General: Yes normal to inspection, Yes full ROM and Yes capillary refill normal <YARIEL Anderson - Last Filed: 04/05/22 17:32> Psych Appearance: grossly normal <YARIEL Anderson - Last Filed: 04/05/22 17:32> Mental Status: mental status grossly normal <YARIEL Anderson - Last Filed: 04/05/22 17:32> Affect: normal affect <YARIEL Anderson - Last Filed: 04/05/22 17:32> Attitude: cooperative <YARIEL Anderson - Last Filed: 04/05/22 17:32> Thought process: Normal thought process present <YARIEL Anderson - Last Filed: 04/05/22 17:32> Thought content: Normal thought content present <YARIEL Anderson - Last Filed: 04/05/22 17:32> Insight: Good insight present (Psych) <YARIEL Anderson - Last Filed: 04/05/22 17:32> Course Reevaluation(s) Reevaluation #1: Initially from this patient's primary provider was to discharge patient however upon discharge patient was unable to get out of bed unable to ambulate, at the bedside. Telling me that they do not feel comfortable taking this patient home, they do not have adequate resources at home. At this time patient will be placed in physician observation to allow more time to be evaluated by physical therapy and case management. At time observation was started patient common cooperative no acute distress. <YARIEL Terry - Last Filed: 04/05/22 18:40> Time: 18:39 <YARIEL Terry - Last Filed: 04/05/22 18:40> Medical Decision Making MDM Narrative Medical decision making narrative: Patient is a 81 year old female presenting to the emergency department today with back pain. Patient's physical exam was unremarkable. Patient's blood work showed a very minimal hypokalemia for which she was given oral potassium. Patient's glucose is elevated however the patient is a known diabetic and had a caramel candy at the time of her arrival in the department. Patient's EKG was unremarkable. Patient's chest, abdominal, head, and C-Spine CTs showed no acute process. I explained my physical exam findings as well as all test results to the patient and the patient's . I answered all questions asked by the patient and the patient's . I stressed the importance of the patient taking her medication as prescribed. I stressed the importance of the patient following up with her primary care provider. I stressed the importance of the patient returning to the emergency department immediately if her symptoms were to worsen or if she were to develop any dizziness, shortness of breath, difficulty breathing, chest pain, blurry vision, loss of vision, nausea, vomiting, abdominal pain, fever, chills, back pain, or any other complaints. Patient and the patient's verbalized agreement and understanding with this treatment plan and discharge. <YARIEL Anderson - Last Filed: 04/05/22 17:32> Differential Diagnosis Differential Diagnosis: back pain, mechanical fall <YARIEL Anderson - Last Filed: 04/05/22 17:32> Medical Records Medical records reviewed: Yes I reviewed the patient's medical records. <YARIEL Anderson - Last Filed: 04/05/22 17:32> Lab Data Lab results reviewed: Yes I reviewed the patient's lab results. <YARIEL Anderson - Last Filed: 04/05/22 17:32> Result diagrams: : 04/05/22 16:43 04/05/22 16:43 <YARIEL Anderson - Last Filed: 04/05/22 17:32> Labs: Lab Results 04/05/22 04/05/22 04/05/22 Range/Units 16:42 16:42 16:42 WBC (4.8-10.8) X10*3/uL RBC (4.20-5.50) X10*6/uL Hgb (12.0-16.0) g/dl Hct (37.0-47.0) % MCV (80.0-98.0) fL MCH (27.0-33.0) pg MCHC (31.0-35.0) g/dl RDW (11.0-16.0) % Plt Count (160-400) X10*3/uL MPV (9.4-12.3) fL Immature Gran % (Auto) (0.0-0.4) % Neut % (Auto) (45-73) % Lymph % (Auto) (20-40) % [place] % (Auto) (2-11) % Eos % (Auto) (0-4) % Baso % (Auto) (0-2) % Lymph # (Auto) (1.2-4.9) X10*3/uL [place] # (Auto) (0.1-1.2) X10*3/uL Eos # (Auto) (0.0-0.4) X10*3/uL Baso # (Auto) (0.0-0.2) X10*3/uL Abs Immat Gran (auto) (0.00-0.03) X10*3/uL Absolute Neuts (auto) (2.0-8.3) x10*3/uL Absolute Nucleated RBC (0.0-0.012) X10*3/uL Nucleated RBC % (auto) (0.0-0.2) /100WBC Sodium (135-145) mmol/L Potassium (3.3-5.1) mmol/L Chloride (96-108) mmol/L Carbon Dioxide (22-29) mmol/L Anion Gap (12-20) BUN (9-16) mg/dL Creatinine (0.5-1.4) mg/dL Estim Creat Clear Calc Estimated GFR Random Glucose (60-115) mg/dL Lactic Acid 0.8 (0.5-2.0) mmol/L Calcium (8.4-10.2) mg/dL Magnesium (1.6-2.6) mg/dL Total Bilirubin (0.0-1.0) mg/dL AST (5-31) U/L ALT (0-31) U/L Alkaline Phosphatase (39-117) U/L Troponin I High Sens (<3.5-17.0) ng/L B-Natriuretic Peptide (<100) pg/mL Total Protein (6.5-8.0) g/dL Albumin (3.5-5.0) g/dL COVID-19 (KIM) Negative (Negative) COVID-19 Clin Com See Note Influenza Type A (BISMARK) Negative (Negative) Influenza Type B (BISMARK) Negative (Negative) Influenza A & B Note See Note 04/05/22 04/05/22 04/05/22 Range/Units 16:43 16:43 16:43 WBC 11.8 H (4.8-10.8) X10*3/uL RBC 4.82 (4.20-5.50) X10*6/uL Hgb 13.6 (12.0-16.0) g/dl Hct 40.3 (37.0-47.0) % MCV 83.6 (80.0-98.0) fL MCH 28.2 (27.0-33.0) pg MCHC 33.7 (31.0-35.0) g/dl RDW 12.9 (11.0-16.0) % Plt Count 194 (160-400) X10*3/uL MPV 10.1 (9.4-12.3) fL Immature Gran % (Auto) 0.6 H (0.0-0.4) % Neut % (Auto) 85.8 H (45-73) % Lymph % (Auto) 7.6 L (20-40) % [place] % (Auto) 5.5 (2-11) % Eos % (Auto) 0.3 (0-4) % Baso % (Auto) 0.2 (0-2) % Lymph # (Auto) 0.9 L (1.2-4.9) X10*3/uL [place] # (Auto) 0.7 (0.1-1.2) X10*3/uL Eos # (Auto) 0.0 (0.0-0.4) X10*3/uL Baso # (Auto) 0.0 (0.0-0.2) X10*3/uL Abs Immat Gran (auto) 0.07 H (0.00-0.03) X10*3/uL Absolute Neuts (auto) 10.1 H (2.0-8.3) x10*3/uL Absolute Nucleated RBC 0.000 (0.0-0.012) X10*3/uL Nucleated RBC % (auto) 0.0 (0.0-0.2) /100WBC Sodium 134 L (135-145) mmol/L Potassium 3.2 L (3.3-5.1) mmol/L Chloride 99 (96-108) mmol/L Carbon Dioxide 24 (22-29) mmol/L Anion Gap 14 (12-20) BUN 15 (9-16) mg/dL Creatinine 1.00 (0.5-1.4) mg/dL Estim Creat Clear Calc 41.1 Estimated GFR 53 Random Glucose 348 H (60-115) mg/dL Lactic Acid (0.5-2.0) mmol/L Calcium 9.4 D (8.4-10.2) mg/dL Magnesium 1.7 (1.6-2.6) mg/dL Total Bilirubin 1.3 H (0.0-1.0) mg/dL AST 14 (5-31) U/L ALT 12 (0-31) U/L Alkaline Phosphatase 70 (39-117) U/L Troponin I High Sens 10.4 (<3.5-17.0) ng/L B-Natriuretic Peptide 30 (<100) pg/mL Total Protein 6.7 (6.5-8.0) g/dL Albumin 4.1 (3.5-5.0) g/dL COVID-19 (KIM) (Negative) COVID-19 Clin Com Influenza Type A (BISMARK) (Negative) Influenza Type B (BISMARK) (Negative) Influenza A & B Note <YARIEL Anderson - Last Filed: 04/05/22 17:32> Lab Results 04/05/22 04/05/22 04/05/22 Range/Units 16:42 16:42 16:42 WBC (4.8-10.8) X10*3/uL RBC (4.20-5.50) X10*6/uL Hgb (12.0-16.0) g/dl Hct (37.0-47.0) % MCV (80.0-98.0) fL MCH (27.0-33.0) pg MCHC (31.0-35.0) g/dl RDW (11.0-16.0) % Plt Count (160-400) X10*3/uL MPV (9.4-12.3) fL Immature Gran % (Auto) (0.0-0.4) % Neut % (Auto) (45-73) % Lymph % (Auto) (20-40) % [place] % (Auto) (2-11) % Eos % (Auto) (0-4) % Baso % (Auto) (0-2) % Lymph # (Auto) (1.2-4.9) X10*3/uL [place] # (Auto) (0.1-1.2) X10*3/uL Eos # (Auto) (0.0-0.4) X10*3/uL Baso # (Auto) (0.0-0.2) X10*3/uL Abs Immat Gran (auto) (0.00-0.03) X10*3/uL Absolute Neuts (auto) (2.0-8.3) x10*3/uL Absolute Nucleated RBC (0.0-0.012) X10*3/uL Nucleated RBC % (auto) (0.0-0.2) /100WBC Sodium (135-145) mmol/L Potassium (3.3-5.1) mmol/L Chloride (96-108) mmol/L Carbon Dioxide (22-29) mmol/L Anion Gap (12-20) BUN (9-16) mg/dL Creatinine (0.5-1.4) mg/dL Estim Creat Clear Calc Estimated GFR Random Glucose (60-115) mg/dL Lactic Acid 0.8 (0.5-2.0) mmol/L Calcium (8.4-10.2) mg/dL Magnesium (1.6-2.6) mg/dL Total Bilirubin (0.0-1.0) mg/dL AST (5-31) U/L ALT (0-31) U/L Alkaline Phosphatase (39-117) U/L Troponin I High Sens (<3.5-17.0) ng/L B-Natriuretic Peptide (<100) pg/mL Total Protein (6.5-8.0) g/dL Albumin (3.5-5.0) g/dL COVID-19 (KIM) Negative (Negative) COVID-19 Clin Com See Note Influenza Type A (BISMARK) Negative (Negative) Influenza Type B (BISMARK) Negative (Negative) Influenza A & B Note See Note 04/05/22 04/05/22 04/05/22 Range/Units 16:43 16:43 16:43 WBC 11.8 H (4.8-10.8) X10*3/uL RBC 4.82 (4.20-5.50) X10*6/uL Hgb 13.6 (12.0-16.0) g/dl Hct 40.3 (37.0-47.0) % MCV 83.6 (80.0-98.0) fL MCH 28.2 (27.0-33.0) pg MCHC 33.7 (31.0-35.0) g/dl RDW 12.9 (11.0-16.0) % Plt Count 194 (160-400) X10*3/uL MPV 10.1 (9.4-12.3) fL Immature Gran % (Auto) 0.6 H (0.0-0.4) % Neut % (Auto) 85.8 H (45-73) % Lymph % (Auto) 7.6 L (20-40) % [place] % (Auto) 5.5 (2-11) % Eos % (Auto) 0.3 (0-4) % Baso % (Auto) 0.2 (0-2) % Lymph # (Auto) 0.9 L (1.2-4.9) X10*3/uL [place] # (Auto) 0.7 (0.1-1.2) X10*3/uL Eos # (Auto) 0.0 (0.0-0.4) X10*3/uL Baso # (Auto) 0.0 (0.0-0.2) X10*3/uL Abs Immat Gran (auto) 0.07 H (0.00-0.03) X10*3/uL Absolute Neuts (auto) 10.1 H (2.0-8.3) x10*3/uL Absolute Nucleated RBC 0.000 (0.0-0.012) X10*3/uL Nucleated RBC % (auto) 0.0 (0.0-0.2) /100WBC Sodium 134 L (135-145) mmol/L Potassium 3.2 L (3.3-5.1) mmol/L Chloride 99 (96-108) mmol/L Carbon Dioxide 24 (22-29) mmol/L Anion Gap 14 (12-20) BUN 15 (9-16) mg/dL Creatinine 1.00 (0.5-1.4) mg/dL Estim Creat Clear Calc 41.1 Estimated GFR 53 Random Glucose 348 H (60-115) mg/dL Lactic Acid (0.5-2.0) mmol/L Calcium 9.4 D (8.4-10.2) mg/dL Magnesium 1.7 (1.6-2.6) mg/dL Total Bilirubin 1.3 H (0.0-1.0) mg/dL AST 14 (5-31) U/L ALT 12 (0-31) U/L Alkaline Phosphatase 70 (39-117) U/L Troponin I High Sens 10.4 (<3.5-17.0) ng/L B-Natriuretic Peptide 30 (<100) pg/mL Total Protein 6.7 (6.5-8.0) g/dL Albumin 4.1 (3.5-5.0) g/dL COVID-19 (KIM) (Negative) COVID-19 Clin Com Influenza Type A (BISMARK) (Negative) Influenza Type B (BISMARK) (Negative) Influenza A & B Note <YARIEL Terry - Last Filed: 04/05/22 18:40> Imaging Data Head and C-Spine CT: Attestation: I personally reviewed and interpreted this imaging study as follows: <YARIEL Anderson - Last Filed: 04/05/22 17:32> My impression: No acute process. <YARIEL Anderson - Last Filed: 04/05/22 17:32> Radiologist's impression: EXAMINATION: NONCONTRAST HEAD CT NONCONTRAST CERVICAL SPINE CT INDICATION INFORMATION: Fall with pain COMPARISON: Head CT 06/01/2020 TECHNIQUE: Separate noncontrast CT examinations of the head and cervical spine were performed. Coronal and sagittal images were created for each examination at the technologist workstation. This CT examination was performed using dose optimization techniques as appropriate, variously including the following: *Automated exposure control *Adjustment of mA and/or kV according to patient size (this includes techniques or standardized protocols for targeted exams where dose is matched to indication/reason for exam; i.e. extremities or head) *Use of iterative reconstruction technique DLP: 1394 mGy-cm FINDINGS: HEAD: No intra or extra-axial fluid collection, hemorrhage, or mass. No ventriculomegaly. No midline shift or herniation. Basal cisterns are patent. Delgado-white matter differentiation is maintained. 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 Small remote lacunar infarct in the right caudate and lentiform nucleus, unchanged. Proportional prominence of the ventricles and sulcal spaces is consistent with mild volume loss. Patchy periventricular and deep white matter hypoattenuation is consistent with moderate small vessel ischemic changes. No calvarial fracture or soft tissue abnormality.? The mastoid air cells and visualized portions of the paranasal sinuses are well aerated. Right supraclinoid ICA stent. Status post bilateral lens extractions. CERVICAL SPINE: Alignment: Minimal grade 1 anterolisthesis at C7-T1 with facet joint ankylosis at this level. No additional subluxation. Vertebra: No acute fracture. No prevertebral soft tissue swelling. Degenerative disc disease: Acquired ankylosis of the C6-C7 vertebral bodies and facets at C7-T1. Multilevel degenerative disc disease characterized by multilevel disc height loss with endplate sclerosis and proliferative change most advanced at C5-C6. Advanced multilevel bilateral facet arthrosis and uncovertebral spurring. Other findings: No cervical lymphadenopathy. Visualized major salivary glands and thyroid gland are unremarkable. Visualized lung apices are clear. CT/CT head/brain wo con IMPRESSION: ? 1. No intracranial hemorrhage, calvarial fracture, or other acute intracranial abnormality. 2. No traumatic subluxation or acute cervical spine fracture. Dictated By: Ke Perry Signed By: Electronically signed by Ke?[place] 04/05/22 1697 <YARIEL Anderson - Last Filed: 04/05/22 17:32> CT abdomen and CT chest: Attestation: I personally reviewed and interpreted this imaging study as follows: <YARIEL Anderson - Last Filed: 04/05/22 17:32> My impression: No acut process. <YARIEL Anderson - Last Filed: 04/05/22 17:32> Radiologist's impression: EXAMINATION: CT CHEST, ABDOMEN PELVIS WITHOUT CONTRAST. CLINICAL INFORMATION: Fall and pain. COMPARISON: None? TECHNIQUE: 5 mm thin axial and reformatted 3 mm thin sagittal and coronal images of chest, abdomen and pelvis were obtained without contrast. DLP [id number]? FINDINGS: Chest: The lungs are well-expanded and clear of acute pneumonic process. No contusion or mass seen. There are punctate 2 mm subpleural based noncalcified nodule right upper lobe axial image 176/9, along the right minor fissure axial image 255/9. Or calcification. There is minimal dependent right basilar atelectasis or scarring. There is no pleural effusion or thickening. The thyroid lobes are symmetrical and normal. Central trachea and the bronchi widely patent. Heart size and the great vessels are normal caliber. There are small pretracheal lymph nodes. Moderate coronary artery calcifications are present. There are no abnormal axillary lymph nodes. The chest wall is unremarkable. Abdomen and pelvis: The liver is normal size, homogeneous density and contour. No focal lesion or intrahepatic ductal dilatation seen. There are multiple small gallstones without wall thickening. Visualized spleen, pancreas and right adrenal gland is unremarkable. There is a left adrenal lesion measuring 3 cm and approximately 2 Hounsfield units likely a small cyst Both kidneys are normal size, shape and position. No radiopaque renal calculi or hydronephrosis seen. Is no perinephric stranding there are vascular calcifications in left renal hilum. There is no hydronephrosis. The abdominal aorta is of normal caliber. No retroperitoneal lymph nodes or mass seen. No intra-abdominal mass or hematoma. There is scattered stool and gas seen throughout the colon without significant distention. The small bowel loops are normal caliber. Appendix is normal caliber. No obstruction or free air seen. The abdominal wall appears unremarkable. Imaging through the pelvis reveals unremarkable urinary bladder. The uterus is anteverted and appears unremarkable. Bone windows reveal no aggressive lytic or sclerotic process there is mild degenerative facet joint arthropathy L5-S1, L4-L5, L3-L4 disc levels. No lytic or sclerotic process seen. There are bilateral SI joint changes with vacuum disc phenomena. CT/CT chest wo con IMPRESSION: No acute process seen in the chest, abdomen or pelvis. ? There is a right basilar chronic atelectasis or scarring. ? Cholelithiasis without wall thickening. ? No acute intra-abdominal process seen. Dictated By: Sedrick Burgess MD Signed By: Electronically signed by Sedrick Burgess MD 04/05/22 1214 <YARIEL Anderson - Last Filed: 04/05/22 17:32> ECG Data Attestation: I personally reviewed and interpreted this ECG as follows: <YARIEL Acuña - Last Filed: 04/05/22 17:32> Prior ECG tracings: available for review <YARIEL Anderson - Last Filed: 04/05/22 17:32> Interpretation: Vent. Rate: 093 BPM ? ? Atrial Rate: 093 BPM P-R Int: 204 ms? QRS Dur: 080 ms QT Int: 350 ms ? ? ? P-R-T Axes: 051 073 089 degrees QTc Int: 435 ms ? Sinus rhythm with Premature supraventricular complexes Septal infarct (cited on or before 01-JUN-2020) Abnormal ECG When compared with ECG of 01-JUN-2020 17:25, Premature ventricular complexes are no longer Present Nonspecific T wave abnormality now evident in Lateral leads DD/ [id number] <YARIEL Anderson - Last Filed: 04/05/22 17:32> Discharge Plan Discharge Clinical Impression: Fall, Acute hypokalemia <YARIEL Anderson - Last Filed: 04/05/22 17:32> Patient Disposition: Home, Self-Care <YARIEL Anderson Last Filed: 04/05/22 17:32> Instructions: Fall Prevention (ED) <YARIEL Anderson Last Filed: 04/05/22 17:32> Additional Instructions: Follow up with your primary care provider. Return to the emergency department immediately if your symptoms worsen or if you develop any dizziness, shortness of breath, difficulty breathing, chest pain, blurry vision, loss of vision, nausea, vomiting, abdominal pain, fever, chills, back pain, or any other complaints. <YARIEL Anderson Last Filed: 04/05/22 17:32> Referrals: [facility] Family [facility] [Provider Group] (Call to establish with a primary care provider, if you have a primary care provider, follow up with their office.) [facility] [Provider Group] (Call to establish with a primary care provider, if you have a primary care provider, follow up with their office.) [facility] [Provider Group] (Call to establish with a primary care provider, if you have a primary care provider, follow up with their office.) <YARIEL Anderson - Last Filed: 04/05/22 17:32> Print Language: Bengali <YARIEL Anderson - Last Filed: 04/05/22 17:32>
--- NOTE | 2022-04-05 15:13 | ECG_ITS ---
Test Reason : WEAKNESS Blood Pressure : / mmHG Vent. Rate : 093 BPM Atrial Rate : 093 BPM P-R Int : 204 ms QRS Dur : 080 ms QT Int : 350 ms P-R-T Axes : 051 073 089 degrees QTc Int : 435 ms Sinus rhythm with Premature supraventricular complexes Septal infarct (cited on or before 01-JUN-2020) Abnormal ECG When compared with ECG of 01-JUN-2020 17:25, Premature ventricular complexes are no longer Present Nonspecific T wave abnormality now evident in Lateral leads Referred By: Pilar Mayen Electronically Signed By:Hair Bautista
[2022-04-05 16:50] LABS: MANUAL DIFF FLAG NO
[2022-04-05 16:52] LABS: Basophils Percent Auto 0.2 % (0-2); Eosinophils Percent Auto 0.3 % (0-4); Hematocrit 40.3 % (37.0-47.0); Hemoglobin 13.6 g/dl (12.0-16.0); Imm Gran Abs Auto 0.07 X10*3/uL (0.00-0.03); Imm Gran Pct Auto 0.6 % (0.0-0.4); Lymphocytes Absolute Auto 0.9 X10*3/uL (1.2-4.9); Lymphocytes Percent Auto 7.6 % (20-40); Mean Corpuscular HGB Conc 33.7 g/dl (31.0-35.0); Mean Corpuscular Hemoglobin 28.2 pg (27.0-33.0); Mean Corpuscular Volume 83.6 fL (80.0-98.0); Mean Platelet Volume 10.1 fL (9.4-12.3); Monocytes Absolute Auto 0.7 X10*3/uL (0.1-1.2); Monocytes Percent Auto 5.5 % (2-11); Neutrophils Absolute Auto 10.1 x10*3/uL (2.0-8.3); Neutrophils Percent Auto 85.8 % (45-73); Platelet Count 194 X10*3/uL (160-400); Red Blood Count 4.82 X10*6/uL (4.20-5.50); Red Cell Distribution Width 12.9 % (11.0-16.0); White Blood Count 11.8 X10*3/uL (4.8-10.8)
[2022-04-05 17:04] LABS: Lactic Acid 0.8 mmol/L (0.5-2.0)
[2022-04-05 17:08] LABS: Alanine Aminotransferase 12 U/L (0-31); Albumin Level 4.1 g/dL (3.5-5.0); Alkaline Phosphatase 70 U/L (39-117); Anion Gap 14 (12-20); Aspartate Amino Transferase 14 U/L (5-31); Bilirubin Total 1.3 mg/dL (0.0-1.0); Blood Urea Nitrogen 15 mg/dL (9-16); Calcium 9.4 mg/dL (8.4-10.2); Carbon Dioxide 24 mmol/L (22-29); Chloride 99 mmol/L (96-108); Creatinine Clr Calc Pharmacy 41.1; Estimated Glomerular Filt Rate 53; Glucose Random 348 mg/dL (60-115); Magnesium 1.7 mg/dL (1.6-2.6); Potassium 3.2 mmol/L (3.3-5.1); Sodium 134 mmol/L (135-145); Total Protein 6.7 g/dL (6.5-8.0)
[2022-04-05 17:13] LABS: COVID-19 Test Negative (Negative); IDNOW Serial# 16C4AD1C; Influenza A Negative (Negative); Influenza B2 Negative (Negative)
[2022-04-05 17:14] LABS: B Type Natriuretic Peptide 30 pg/mL (<100); Troponin-I High Sensitivity 10.4 ng/L (<3.5-17.0)
--- NOTE | 2022-04-05 17:23 | MHC.CM.ED ---
CM called pt , Ke Mtz ([phone]) with regards to discharge home and if he felt pt was safe to go home. tells CM take his is safe at home and that he is very capable of caring for her. He has neighbors who help him with her. is aware that he can ask for help if needed. 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 Tells CM he has help at home to assist with getting her into the house. Tells CM his has a walker, but is very stubborn and does not use it. CM spoke with patient about need to use walker at home. Pilar SALDIVAR aware of above conversation and will D/C patient. RN aware.
[2022-04-05] MEDS: Potassium Chloride ER 20 MEQ TAB.ER.PRT PO (18:36)
--- NOTE | 2022-04-05 18:42 | MHC.CM.ED ---
Addendum entered by Mile No 04/05/22 19:07: HCP reviewed, completed and signed. Copies given. Uploaded into [facility] [facility] and [facility]. HCP/daughter Mira Tate ([phone]), ). Vaccinated with J&J. No booster. Original Note: CM witnessed this patient attempting to get OOB to W/C for d/c home. Pt extremely unsteady and unable to successfully transfer without 2 assist. COREY Stevens aware. CM/RN spoke with patient and about safety concerns and that pt would benefit from a PT evaluation and STR. Pt initally hesitant, but upon further discussion, both patient and are agreeable. Conchita SALDIVAR aware. Pt will remain in ED awaiting PT assessment and STR. requests [facility] as first choice, then local facilities. Referrals place. CM to follow for d/c needs.
[2022-04-05 19:50] VITALS: BP 143/62; PULSE 91; RESP 16; TEMP 36.6; O2SAT 93
[2022-04-05 22:18] VITALS: BP 160/80; PULSE 79; RESP 16; O2SAT 93
[2022-04-06] VITALS (7 sets, daily range): BP systolic 139–176; BP diastolic 78–98; PULSE 78–108; RESP 14–20; TEMP 36.5–37.7; O2SAT 93–96
--- NOTE | 2022-04-06 00:50 | PC.NURSE ---
PATIENT WAS INC OF URINE ,CARE WAS GIVEN BEDDING CHANGE ,PATIENT NOW RESTING IN BED .
--- NOTE | 2022-04-06 08:08 | MHC.CM.ED ---
Addendum entered by Kelin Bui 04/06/22 11:52: [facility] able to offer a bed. Per Dr Powell, one of two blood cultures are positive. Patient will need to stay overnight to make sure 2nd blood culture isn't positive. Tentative plan for patient to leave for [facility] on 04/07 at 10am. [facility]. [facility]. Patient, Louis and daughter Mira forrest. Original Note: Patient remains in ER. Physical therapy eval completed. Short term rehab is recommended. SNF choices: 1) [facility] 2)[facility]. Referrals updated in [facility]. Continue to monitor for d/c needs.
--- NOTE | 2022-04-06 10:07 | PHA.MEDREC ---
Pharmacy Consult ? Medication Reconciliation Pharmacy has completed the medication reconciliation. Patient confused, unsure of what medicatons she takes. Attempted to contact Ke with no luck. Utilized claim histroy to confirm medications. All medications have been filled recently. Mally De Jesus, PharmD
--- NOTE | 2022-04-06 10:43 | PC.NURSE ---
confused but redirectable, sitter at bedside, occasionally sits up in bed and appears anxious but redirectable, skin wpd, linens and pt cleaned as pt was incontinent of stool and urine
[2022-04-06 11:00] LABS: Influenza A PCR NEGATIVE (Negative); Influenza B PCR NEGATIVE (Negative); Resp Syncy Virus RNA Qual PCR NEGATIVE (Negative); SARS COV2 PCR INHOUSE NEGATIVE (Negative)
[2022-04-06] MEDS: cefTRIAXone sodium 1 GM in 0.9 % Sodium Chloride 50 ML IV (11:31)
[2022-04-06 11:47] LABS: MANUAL DIFF FLAG NO
[2022-04-06 11:55] LABS: Appearance Urine CLEAR; Color Urine YELLOW; Glucose Urine UA 500 MG/DL (NEG); Leukocyte Esterase Urine NEG (NEG); Nitrite Urine NEG (NEG); Specific Gravity - Urine 1.025 (1.005-1.025); Urine Blood NEG (NEG); Urine Ketones 40 MG/DL (NEG); Urine Protein TRACE MG/DL (NEG-TRACE)
[2022-04-06 11:59] LABS: Lactic Acid 1.2 mmol/L (0.5-2.0)
[2022-04-06 12:01] LABS: Basophils Percent Auto 0.4 % (0-2); Eosinophils Absolute Auto 0.1 X10*3/uL (0.0-0.4); Eosinophils Percent Auto 0.5 % (0-4); Hematocrit 41.6 % (37.0-47.0); Hemoglobin 14.2 g/dl (12.0-16.0); Imm Gran Abs Auto 0.09 X10*3/uL (0.00-0.03); Imm Gran Pct Auto 0.8 % (0.0-0.4); Lymphocytes Absolute Auto 0.9 X10*3/uL (1.2-4.9); Lymphocytes Percent Auto 8.3 % (20-40); Mean Corpuscular HGB Conc 34.1 g/dl (31.0-35.0); Mean Corpuscular Hemoglobin 28.5 pg (27.0-33.0); Mean Corpuscular Volume 83.5 fL (80.0-98.0); Mean Platelet Volume 10.7 fL (9.4-12.3); Monocytes Absolute Auto 0.8 X10*3/uL (0.1-1.2); Neutrophils Absolute Auto 9.1 x10*3/uL (2.0-8.3); Platelet Count 226 X10*3/uL (160-400); Red Blood Count 4.98 X10*6/uL (4.20-5.50); Red Cell Distribution Width 12.9 % (11.0-16.0); White Blood Count 10.9 X10*3/uL (4.8-10.8)
[2022-04-06 12:40] LABS: Anion Gap 17 (12-20); Blood Urea Nitrogen 22 mg/dL (9-16); Calcium 9.4 mg/dL (8.4-10.2); Carbon Dioxide 23 mmol/L (22-29); Chloride 100 mmol/L (96-108); Creatinine Clr Calc Pharmacy 42.4; Estimated Glomerular Filt Rate 55; Glucose Random 352 mg/dL (60-115); Potassium 3.6 mmol/L (3.3-5.1); Sodium 136 mmol/L (135-145)
--- NOTE | 2022-04-06 15:44 | PC.NURSE ---
1500: pt on hospital bed with alarm. pericare done
--- NOTE | 2022-04-06 17:38 | PM.IMHP ---
History of Present Illness Date of Service: 04/06/22 <Laura Guallpa NP - Last Filed: 04/06/22 17:48> Chief Complaint: Falls <Laura Guallpa NP - Last Filed: 04/06/22 17:48> 81-year-old woman with a history of dementia presents to the ER after 2 falls at home. According to her on Tuesday she had a fall but declined to come to the hospital. On Tuesday he went to her room to get her some food and wake her up and he found her on the floor in the bathroom and at that point he decided to bring her to the ER. The plan at that time was to place her for short-term rehab but blood work was taken and subsequently came back today showing Gram-positive cocci 2/2 blood cultures. Patient has had no fever, leukocytosis. Urinalysis negative, chest CT was negative for any consolidation or effusion. Unfortunately, patient has dementia and was unable to participate in the interview. She was started on ceftriaxone in the ER. Vital signs are stable. She will be admitted for further management and treatment of bacteremia. <Laura Guallpa NP - Last Filed: 04/06/22 17:48> [facility] Medical History: Medical History (Updated 04/06/22 @ 17:43 by Laura Guallpa NP) Dementia Diabetes mellitus Hypertension <Laura Guallpa NP - Last Filed: 04/06/22 17:48> Pertinent family history: Unable to obtain as patient has dementia and is unaccompanied <Laura Guallpa NP - Last Filed: 04/06/22 17:48> Social History: Social History Alcohol intake: never Advance Directives: No Advance Directives Information Provided: No <Laura Guallpa NP - Last Filed: 04/06/22 17:48> Meds Allergies/Adverse reactions: Allergies Allergy/AdvReac Type Severity Reaction Status Date / Time Penicillins Allergy Mild UNKNOWN Unverified 07/10/20 15:26 penicillin G Allergy Unknown Verified 12/26/18 00:00 <Laura Guallpa NP - Last Filed: 04/06/22 17:48> Active Medications: Current Medications Acetaminophen (Acetaminophen 325 Mg Tablet) 650 mg PO Q6H PRN PRN Reason: Pain, Mild (Pain Scale 1-3) Dextrose (Dextrose 50 % 25 Gm/50 Ml Syringe) 25 gm IVPUSH Q15M PRN; Protocol PRN Reason: per Hypoglycemia Standing Ord. Enoxaparin Sodium (Enoxaparin Sodium 40 Mg/0.4 Ml Syringe) 40 mg SUBCUT Q24H [facility] Glucose (Glucose Gel 15 Gm Gel..Gram.) 15 gm PO Q15M PRN; Protocol PRN Reason: per Hypoglycemia Standing Ord. Hydrochlorothiazide (Hydrochlorothiazide 25 Mg Tablet) 25 mg PO DAILY [facility]; Protocol Vancomycin HCl 1,000 mg/ (Sodium Chloride) 270 mls @ 270 mls/hr IV Q12H [facility] Insulin Human Lispro (Insulin Lispro 100 Unit/Ml 3 Ml Vial) 0 unit SUBCUT QIDACHS [facility]; Protocol Lisinopril (Lisinopril 20 Mg Tablet) 20 mg PO DAILY [facility]; Protocol Non-Formulary Medication (Simvastatin) 1 tab PO DAILY [facility] Ondansetron HCl (Ondansetron Hcl 4 Mg/2 Ml Vial) 4 mg IVPUSH Q8H PRN PRN Reason: Nausea and Vomiting Pharmacy Consult (Consult Rx Perform Med Rec) 1 each MISCELLANE ONCE PRN PRN Reason: Consult order Pharmacy Consult (Consult Rx Vancomycin Dosing) 1 each MISCELLANE DAILY PRN PRN Reason: Consult order Sitagliptin Phosphate (Sitagliptin Phosphate 100 Mg Tablet) 100 mg PO DAILY [facility] Sodium Chloride (0.9 % Sodium Chloride Flush 3 Ml Syringe) 3 ml IVFLUSH QSHIFT [facility] <Laura Guallpa NP - Last Filed: 04/06/22 17:48> Home medications: Home Medications Medication Instructions Recorded Confirmed Last Taken Type glipizide 10 mg tablet, extended 1 tab PO BID 04/06/22 04/06/22 Unknown History release 24 hr hydrochlorothiazide 25 mg tablet 1 tab PO DAILY 04/06/22 04/06/22 Unknown History lisinopril 20 mg tablet 1 tab PO DAILY 04/06/22 04/06/22 Unknown History metformin 500 mg tablet 2 tab PO BID 04/06/22 04/06/22 Unknown History simvastatin 20 mg tablet 1 tab PO DAILY 04/06/22 04/06/22 Unknown History sitagliptin 100 mg tablet (Hiuvia) 1 tab PO DAILY 04/06/22 04/06/22 Unknown History <Laura Guallpa NP - Last Filed: 04/06/22 17:48> Physical Exam Vital Signs and Narrative: Vital Signs: Last Vital Signs Temp 97.7 F 04/06/22 15:28 Pulse 96 04/06/22 15:28 Resp 20 04/06/22 15:28 BP 163/98 H 04/06/22 15:28 Pulse Ox 96 04/06/22 15:28 O2 Del Method 04/06/22 15:28 BMI result Body Mass Index 28.3 <Laura Guallpa NP - Last Filed: 04/06/22 17:48> Appearing in no acute distress head is normocephalic atraumatic eyes pupils are PERRLA sclera is anicteric mouth throat mucous membranes are intact and moist neck is supple no lymphadenopathy, no JVD noted lung sounds are clear to auscultation heart regular rate rhythm, clear S1, S2 positive bowel sounds, abdomen is soft, nontender neuro patient is alert, confused <Laura Guallpa NP - Last Filed: 04/06/22 17:48> Results Labs CBC and Chem 7: : 04/06/22 11:22 04/06/22 11:22 <Laura Guallpa NP - Last Filed: 04/06/22 17:48> Labs: Laboratory Results - last 24 hr 04/06/22 04/06/22 04/06/22 09:48 11:22 11:22 MCV 83.5 MCH 28.5 MCHC 34.1 RDW 12.9 Plt Count 226 MPV 10.7 Immature Gran % (Auto) 0.8 H Neut % (Auto) 83.0 H Lymph % (Auto) 8.3 L Hinds % (Auto) 7.0 Eos % (Auto) 0.5 Baso % (Auto) 0.4 Lymph # (Auto) 0.9 L Hinds # (Auto) 0.8 Eos # (Auto) 0.1 Baso # (Auto) 0.0 Abs Immat Gran (auto) 0.09 H Absolute Neuts (auto) 9.1 H Absolute Nucleated RBC 0.000 Nucleated RBC % (auto) 0.0 Anion Gap 17 Estim Creat Clear Calc 42.4 Estimated GFR 55 Random Glucose 352 H* Lactic Acid Calcium 9.4 Urine Color Urine Appearance Urine pH Ur Specific [place] Urine Protein Urine Glucose (UA) Urine Ketones Urine Blood Urine Nitrite Ur Leukocyte Esterase Influenza Type A (PCR) NEGATIVE Influenza Type B (PCR) NEGATIVE RSV RNA Qual (PCR) NEGATIVE SARS-CoV-2 RNA (RT-PCR) NEGATIVE 04/06/22 04/06/22 11:22 11:34 MCV MCH MCHC RDW Plt Count MPV Immature Gran % (Auto) Neut % (Auto) Lymph % (Auto) Hinds % (Auto) Eos % (Auto) Baso % (Auto) Lymph # (Auto) Hinds # (Auto) Eos # (Auto) Baso # (Auto) Abs Immat Gran (auto) Absolute Neuts (auto) Absolute Nucleated RBC Nucleated RBC % (auto) Anion Gap Estim Creat Clear Calc Estimated GFR Random Glucose Lactic Acid 1.2 Calcium Urine Color YELLOW Urine Appearance CLEAR Urine pH 6.0 Ur Specific [place] 1.025 Urine Protein TRACE Urine Glucose (UA) 500 H Urine Ketones 40 Urine Blood NEG Urine Nitrite NEG Ur Leukocyte Esterase NEG Influenza Type A (PCR) Influenza Type B (PCR) RSV RNA Qual (PCR) SARS-CoV-2 RNA (RT-PCR) <Laura Guallpa NP - Last Filed: 04/06/22 17:48> Assessment and Plan (1) Fall: Status: Acute <Laura Guallpa NP - Last Filed: 04/06/22 17:48> 81-year-old woman admitted with acute encephalopathy possibly secondary to Gram-positive cocci bacteremia. Falls at home Acute encephalopathy possibly secondary to Gram-positive cocci bacteremia History of dementia reports history of MRSA in the past Vancomycin started Follow final cultures ID consultation Echocardiogram MRSA swab Falls. Chronic No injury on imaging PT consult Diabetes mellitus Sliding scale, ADA diet Hypertension Continue lisinopril and hydrochlorothiazide Hyperlipidemia continue statin DVT prophylaxis with Lovenox ext line attending doctor Rodolfo Full code Patient likely requires 2 midnights in the hospital for treatment of Gram-positive cocci bacteremia, pending final blood cultures to determine antibiotic coverage, echocardiogram pending <Laura Guallpa NP - Last Filed: 04/06/22 17:48> 81-year-old woman admitted with acute encephalopathy possibly secondary to Gram-positive cocci bacteremia. Falls at home Acute encephalopathy possibly secondary to Gram-positive cocci bacteremia History of dementia reports history of MRSA in the past Vancomycin started Follow final cultures ID consultation Echocardiogram MRSA swab Falls. Chronic No injury on imaging PT consult Diabetes mellitus Sliding scale, ADA diet Hypertension Continue lisinopril and hydrochlorothiazide Hyperlipidemia continue statin DVT prophylaxis with Lovenox ext line attending doctor Rodolfo Full code Patient likely requires 2 midnights in the hospital for treatment of Gram-positive cocci bacteremia, pending final blood cultures to determine antibiotic coverage, echocardiogram pending Addendum to history and physical by mid-level provider Carmen Guallpa NP I interviewed and examined the patient. I discussed their presentation and management with the mid-level provider. I reviewed the history and physical and agree with the documentation, with the following additions and corrections: 81yo F with dementia presenting after 2 falls at home, was awaiting STR placement but then developed GPC bacteremia. On exam, in NAD, alert, disoriented. No murmur and no obvious skin source of bacteria. Plan admit to M/S, give vancomycin, follow BCx speciation/susceptibilities, consult ID< check TTE. <Rohit Reynolds MD - Last Filed: 04/06/22 18:33> Quality Stroke Does the patient have a stroke diagnosis?: No <Laura Guallpa NP - Last Filed: 04/06/22 17:48> VTE Prior VTE?: No <Laura Guallpa NP - Last Filed: 04/06/22 17:48> VTE Risk Level:: Medical - moderate - high <Laura Guallpa NP - Last Filed: 04/06/22 17:48> VTE Device Contraindication: Treatment Not Indicated <Laura Guallpa NP - Last Filed: 04/06/22 17:48> VTE Drug Contraindication: N/A - Med Ordered <Laura Guallpa NP - Last Filed: 04/06/22 17:48>
--- NOTE | 2022-04-06 18:42 | MHC.CM.PN ---
Addendum entered by Mile No 04/06/22 19:01: Pt lives with . HX dementia. PCP is Vinay Mora. Vax w J&J. No booster. No services. PT recommended STR at D/C. [facility] accepted. D/C plan: [facility] for [facility]. Will need transportation to facility. CM to follow for d/c needs Addendum entered by Mile No 04/06/22 18:50: Called to review IMM. Message left. Reviewed IMM 04/07. Copy at bedside. Contact information left on message.CM to follow for d/c needs. Addendum entered by Mile No 04/06/22 18:46: BLS transport to [facility] cancelled for tomorrow 04/07/22@10:30am in [facility] and called in. Original Note: Pt admitted secondary to positive blood cultures x2-Bacteremia. aware. Hospitalist spoke with him. Pt was scheduled for STR at [facility] on 04/07 @10am. Request to hold placed in [facility] with request to follow for discharge. CM to follow for d/c needs.
--- NOTE | 2022-04-06 19:07 | PC.NURSE ---
Medication remains unverified by pharmacy at this time.
[2022-04-06] MEDS: vancomycin HCL 1,000 MG, vancomycin HCL 750 MG in 0.9 % Sodium Chloride 500 ML 267.5 MG IV (20:14)
--- NOTE | 2022-04-06 20:33 | PHA.PROG ---
Admission Date/Time: April 06, 2022 19:21 Indication: BACTEREMIA Weight in k.307 kg Adjusted body weight in K.2 KG [place] body weight in K.1 Obesity Dosing Indication % IBW:40 % OVERWEIGHT Serum Creatinine - Last 168 Hours 04/05/22 04/06/22 16:43 11:22 Creatinine 1.00 0.97 Estimated CrCl and GFR - Last 168 Hours 04/05/22 04/06/22 16:43 11:22 Estim Creat Clear Calc 41.1 42.4 Estimated GFR 53 55 Vancomycin Loading Dose: 1750 MG Current Vancomycin Dosing Regimen:1 GRAM Q 24 HOURS Vancomycin Monitoring using AUC goal of 400 - 600 range with trough as surrogate marker: Date and Time for next Vancomycin Level to be drawn: WILL CHECK A RANDOM AFTER 2 DOSES TO CHECK FOR TOXICITY Pharmacist Comments on Vancomycin MAY NEED TO BACK DOWN AFTER 2 DOSES TO GET HER THERAPEUTIC, Plan: PREDICTED AUC OF 585 Vancomycin dosing will take advantage of slinkset as a clinical decision support tool that uses Bayesian modeling to calculate individual patient's pharmacokinetic parameters and forecast the patient's drug concentration time course with the target goal AUC 24 range of 400 - 600 mg/L/hr.
[2022-04-06 21:28] LABS: Glucose, Whole Blood 356 mg/dL (60-115)
[2022-04-06] MEDS: Insulin Lispro 100 UNIT/ML 3 ML VIAL SUBCUT (21:42)
--- NOTE | 2022-04-06 21:46 | PC.NURSE ---
notified of bgl. no new orders.
[2022-04-06 22:32] LABS: Glucose, Whole Blood 336 mg/dL (60-115)
[2022-04-07] VITALS (10 sets, daily range): BP systolic 118–145; BP diastolic 43–69; PULSE 72–97; RESP 17–19; TEMP 36.1–37.2; O2SAT 92–98
[2022-04-07 04:36] LABS: MANUAL DIFF FLAG NO
[2022-04-07 04:38] LABS: Basophils Percent Auto 0.3 % (0-2); Eosinophils Percent Auto 0.2 % (0-4); Hemoglobin 13.7 g/dl (12.0-16.0); Imm Gran Abs Auto 0.09 X10*3/uL (0.00-0.03); Imm Gran Pct Auto 0.7 % (0.0-0.4); Lymphocytes Absolute Auto 0.6 X10*3/uL (1.2-4.9); Lymphocytes Percent Auto 4.8 % (20-40); Mean Corpuscular HGB Conc 33.4 g/dl (31.0-35.0); Mean Corpuscular Hemoglobin 28.2 pg (27.0-33.0); Mean Corpuscular Volume 84.5 fL (80.0-98.0); Mean Platelet Volume 10.2 fL (9.4-12.3); Monocytes Absolute Auto 0.9 X10*3/uL (0.1-1.2); Neutrophils Absolute Auto 11.6 x10*3/uL (2.0-8.3); Platelet Count 222 X10*3/uL (160-400); Red Blood Count 4.85 X10*6/uL (4.20-5.50); White Blood Count 13.3 X10*3/uL (4.8-10.8)
[2022-04-07 04:55] LABS: Anion Gap 14 (12-20); Blood Urea Nitrogen 25 mg/dL (9-16); Calcium 9.5 mg/dL (8.4-10.2); Carbon Dioxide 25 mmol/L (22-29); Chloride 102 mmol/L (96-108); Creatinine Clr Calc Pharmacy 40.4; Estimated Glomerular Filt Rate 52; Glucose Random 319 mg/dL (60-115); Potassium 3.3 mmol/L (3.3-5.1); Sodium 138 mmol/L (135-145)
--- NOTE | 2022-04-07 07:00 | CA_ITS ---
Transthoracic Echocardiogram Patient (Last, First, Middle): Lucía Mtz M Gender: Female Date of : 1940 Age: 81 Procedure Date: 04/07/2022 Procedure Type: Transthoracic Echocardiogram Location: S3E Height: 157.48 cm Weight: 70.31 kg BSA: 1.72 m2 Heart Rate: bpm BP: 176 / 87 mmHg Medical Stenographer: DEIRDRE Referring MD: Laura Guallpa NP Tile Classifier: Bakari Koroma MD Symptoms: GPC bacteremia, encephalopathy Study Quality: Fair ECG Rhythm: Sinus Conclusions: - 1. Technically limited study 2. Normal LV systolic function with impaired relaxation filling pattern next 3. Poor visualization of cardiac valves and vegetations cannot be entirely ruled out on this study Findings Left Ventricle Normal left ventricular size, thickness, and systolic function. The visually estimated ejection fraction is between 55-60%. Spectral Doppler is indicative of an impaired relaxation filling pattern. Right Ventricle The right ventricle was not well visualized. There is borderline right ventricular systolic function. Atria The left atrium is normal in size. Interatrial shunt cannot be excluded. The right atrium was not well visualized. Aortic Valve The aortic valve was not well visualized. There is mild calcification of the aortic valve. There is no aortic valve stenosis. There is no aortic valve regurgitation. Mitral Valve The mitral valve was not well visualized. There is mild mitral annular calcification. There is no mitral valve regurgitation. There is no mitral valve stenosis. Pulmonic Valve The pulmonic valve was not well visualized. Tricuspid Valve The tricuspid valve was not well visualized. Great Vessels The aorta was not well visualized. The pulmonary artery was not well visualized. Venous The inferior vena cava was not well visualized. Pericardium/Pleural The pericardium was not well visualized. Prior Study Comparison No significant change compared to prior study dated: 06/12/2020. Recommendations, Care & Conclusions Consider a LAVON if clinically appropriate. Measurements 2D Linear Measurements IVSd: 0.89 0.6-0.9/0.6-1.0 cm LVIDd: 4.04 3.9-5.3/4.2-5.9 cm LVIDd Index: 2.35 2.4-3.2/2.2-3.1 cm/m2 LVIDs: 2.75 2.0-3.6 cm LVPWd: 1.03 0.7-1.1 cm LA Diam: 1.70 2.7-3.8/3.0-4.0 cm LAIDs Index: 0.99 1.5-2.3 cm/m2 LV Mass: 151.60 67-162/88-224 g LV Mass Index: 88.14 43-95/49-115 g/m2 LVOT Diam: 2.00 3.0+(-)1.3 cm Mitral Valve MV Pk E: 0.72 MV PK A: 0.85 MV Decel Time: 224.00 E/A: 0.80 E'Lateral: 5.66 E'Medial: 4.57 E/E' Med: 15.70 E/E' Lat: 12.70 PHT: 66.00 MVA PHT: 3.33 Decel [place]: 3.19 Aortic Valve AoV Pk Aamir: 1.43 AoV Mn Aamir: 0.90 AoV VTI: 0.24 AoV Pk Grad: 8.00 Aov Mn Grad: 4.00 HAL Cont.VTI: 2.06 LVOT LVOT Pk Aamir: 0.86 LVOT Mn Aamir: 0.52 LVOT VTI: 0.16 LVOT Pk Grad: 3.00 LVOT Mn Grad: 1.00 LVOT Diam: 2.00 LVOT Area: 3.14 Diastolic Function MV Pk E: 0.72 MV Pk A: 0.85 E/A: 0.80 E'Medial: 4.57 E/E' Med: 15.70 E' Laterial: 5.66 E/E' Lat: 12.70 Right Ventricle TAPSE (mm): 17.10 TVS' Aamir: 12.90 Tricuspid Valve RA Press: 3.00 Great Vessels Aorta Sinus of Valsalva: 3.43 2.0-3.5 cm Ao Asc: 3.20 2.1-3.4 cm Updated in Other Vendor System with Status of Final Bakari Koroma MD electronically signed on 04/07/2022 3:15:15 PM with status of Final
[2022-04-07 07:55] LABS: Glucose, Whole Blood 316 mg/dL (60-115)
[2022-04-07] MEDS: 0.9 % Sodium Chloride Flush 3 ML SYRINGE IVFLUSH ×3 (08:16→21:06)
[2022-04-07] MEDS: SITagliptin Phosphate 100 MG TABLET PO (08:16)
[2022-04-07] MEDS: Insulin Lispro 100 UNIT/ML 3 ML VIAL SUBCUT ×4 (08:16→21:05)
--- NOTE | 2022-04-07 08:25 | HE.PHANOTE ---
Vancomycin Dosing Adendum Random level 04/08/22 @1800. Continue with current regimen for now.
--- NOTE | 2022-04-07 10:33 | HO.PM.IMPN ---
Subjective Subjective Date of Service: 04/08/22 Interval History: offers no acute complaints wants to go back home, no acute events since admissions no fevers no chills, Review of Systems patient says no to all questions Review of Systems: Yes Unobtainable due to mental status Physical Exam Vital Signs: Vital Signs: Last Vital Signs Temp 97.2 F 04/07/22 07:14 Pulse 97 04/07/22 09:32 Resp 19 04/07/22 07:14 BP 145/69 H 04/07/22 09:32 Pulse Ox 93 04/06/22 21:19 O2 Del Method 04/06/22 21:19 BMI result Body Mass Index 28.3 Const: Other: General awake alert, resting comfortably, in no acute distress. Neck no JVD. CVS regular rate rhythm, Respiratory lungs clear to auscultation, no respiratory distress, no wheeze, no rhonchi. Gastrointestinal abdomen soft, nontender, bowel sounds audible Extremities no edema. Neuro nonfocal,moving all 4 extremity speech clear. Skin no rash psych poor insight Objective Data Active Medications Acetaminophen (Acetaminophen 325 Mg Tablet) 650 mg PO Q6H PRN PRN Reason: Pain, Mild (Pain Scale 1-3) Atorvastatin Calcium (Atorvastatin Calcium 10 Mg Tablet) 10 mg PO DAILY [facility] Last Admin: 04/07/22 08:21 Dose: Not Given Documented By: YUVAL Non-Admin Reason: Patient Refused Dextrose (Dextrose 50 % 25 Gm/50 Ml Syringe) 25 gm IVPUSH Q15M PRN; Protocol PRN Reason: per Hypoglycemia Standing Ord. Enoxaparin Sodium (Enoxaparin Sodium 40 Mg/0.4 Ml Syringe) 40 mg SUBCUT Q24H [facility] Last Admin: 04/06/22 20:16 Dose: Not Given Documented By: TONIE Non-Admin Reason: Patient Refused Glucose (Glucose Gel 15 Gm Gel..Gram.) 15 gm PO Q15M PRN; Protocol PRN Reason: per Hypoglycemia Standing Ord. Hydrochlorothiazide (Hydrochlorothiazide 25 Mg Tablet) 25 mg PO DAILY [facility]; Protocol Last Admin: 04/07/22 08:22 Dose: Not Given Documented By: YUVAL Non-Admin Reason: Patient Refused Vancomycin HCl 1,000 mg/ (Sodium Chloride) 270 mls @ 270 mls/hr IV Q24H [facility] Insulin Human Lispro (Insulin Lispro 100 Unit/Ml 3 Ml Vial) 0 unit SUBCUT QIDACHS [facility]; Protocol Last Admin: 04/07/22 08:16 Dose: 8 unit Documented By: YUVAL Lisinopril (Lisinopril 20 Mg Tablet) 20 mg PO DAILY [facility]; Protocol Last Admin: 04/07/22 08:22 Dose: Not Given Documented By: YUVAL Non-Admin Reason: Patient Refused Ondansetron HCl (Ondansetron Hcl 4 Mg/2 Ml Vial) 4 mg IVPUSH Q8H PRN PRN Reason: Nausea and Vomiting Pharmacy Consult (Consult Rx Perform Med Rec) 1 each MISCELLANE ONCE PRN PRN Reason: Consult order Pharmacy Consult (Consult Rx Vancomycin Dosing) 1 each MISCELLANE DAILY PRN PRN Reason: Consult order Sitagliptin Phosphate (Sitagliptin Phosphate 100 Mg Tablet) 100 mg PO DAILY [facility] Last Admin: 04/07/22 08:16 Dose: 100 mg Documented By: YUVAL Sodium Chloride (0.9 % Sodium Chloride Flush 3 Ml Syringe) 3 ml IVFLUSH QSHIFT [facility] Last Admin: 04/07/22 08:16 Dose: 3 ml Documented By: YUVAL Labs CBC & Chem 7: 04/07/22 04:07 04/07/22 04:07 Labs: Laboratory Results - last 24 hr 04/06/22 04/06/22 04/06/22 09:48 11:22 11:22 MCV 83.5 MCH 28.5 MCHC 34.1 RDW 12.9 Plt Count 226 MPV 10.7 Immature Gran % (Auto) 0.8 H Neut % (Auto) 83.0 H Lymph % (Auto) 8.3 L Riley % (Auto) 7.0 Eos % (Auto) 0.5 Baso % (Auto) 0.4 Lymph # (Auto) 0.9 L Riley # (Auto) 0.8 Eos # (Auto) 0.1 Baso # (Auto) 0.0 Abs Immat Gran (auto) 0.09 H Absolute Neuts (auto) 9.1 H Absolute Nucleated RBC 0.000 Nucleated RBC % (auto) 0.0 Anion Gap 17 Estim Creat Clear Calc 42.4 Estimated GFR 55 POC Glucose Random Glucose 352 H* Lactic Acid Calcium 9.4 Urine Color Urine Appearance Urine pH Ur Specific [place] Urine Protein Urine Glucose (UA) Urine Ketones Urine Blood Urine Nitrite Ur Leukocyte Esterase Influenza Type A (PCR) NEGATIVE Influenza Type B (PCR) NEGATIVE RSV RNA Qual (PCR) NEGATIVE SARS-CoV-2 RNA (RT-PCR) NEGATIVE 04/06/22 04/06/22 04/06/22 11:22 11:34 21:22 MCV MCH MCHC RDW Plt Count MPV Immature Gran % (Auto) Neut % (Auto) Lymph % (Auto) Riley % (Auto) Eos % (Auto) Baso % (Auto) Lymph # (Auto) Riley # (Auto) Eos # (Auto) Baso # (Auto) Abs Immat Gran (auto) Absolute Neuts (auto) Absolute Nucleated RBC Nucleated RBC % (auto) Anion Gap Estim Creat Clear Calc Estimated GFR POC Glucose 356 H* Random Glucose Lactic Acid 1.2 Calcium Urine Color YELLOW Urine Appearance CLEAR Urine pH 6.0 Ur Specific [place] 1.025 Urine Protein TRACE Urine Glucose (UA) 500 H Urine Ketones 40 Urine Blood NEG Urine Nitrite NEG Ur Leukocyte Esterase NEG Influenza Type A (PCR) Influenza Type B (PCR) RSV RNA Qual (PCR) SARS-CoV-2 RNA (RT-PCR) 04/06/22 04/07/22 04/07/22 22:28 04:07 04:07 MCV 84.5 MCH 28.2 MCHC 33.4 RDW 13.0 Plt Count 222 MPV 10.2 Immature Gran % (Auto) 0.7 H Neut % (Auto) 87.0 H Lymph % (Auto) 4.8 L Riley % (Auto) 7.0 Eos % (Auto) 0.2 Baso % (Auto) 0.3 Lymph # (Auto) 0.6 L Riley # (Auto) 0.9 Eos # (Auto) 0.0 Baso # (Auto) 0.0 Abs Immat Gran (auto) 0.09 H Absolute Neuts (auto) 11.6 H Absolute Nucleated RBC 0.000 Nucleated RBC % (auto) 0.0 Anion Gap 14 Estim Creat Clear Calc 40.4 Estimated GFR 52 POC Glucose 336 H Random Glucose 319 H Lactic Acid Calcium 9.5 Urine Color Urine Appearance Urine pH Ur Specific [place] Urine Protein Urine Glucose (UA) Urine Ketones Urine Blood Urine Nitrite Ur Leukocyte Esterase Influenza Type A (PCR) Influenza Type B (PCR) RSV RNA Qual (PCR) SARS-CoV-2 RNA (RT-PCR) 04/07/22 07:48 MCV MCH MCHC RDW Plt Count MPV Immature Gran % (Auto) Neut % (Auto) Lymph % (Auto) Riley % (Auto) Eos % (Auto) Baso % (Auto) Lymph # (Auto) Riley # (Auto) Eos # (Auto) Baso # (Auto) Abs Immat Gran (auto) Absolute Neuts (auto) Absolute Nucleated RBC Nucleated RBC % (auto) Anion Gap Estim Creat Clear Calc Estimated GFR POC Glucose 316 H Random Glucose Lactic Acid Calcium Urine Color Urine Appearance Urine pH Ur Specific [place] Urine Protein Urine Glucose (UA) Urine Ketones Urine Blood Urine Nitrite Ur Leukocyte Esterase Influenza Type A (PCR) Influenza Type B (PCR) RSV RNA Qual (PCR) SARS-CoV-2 RNA (RT-PCR) Microbiology Microbiology Results: Microbiology 04/05/22 16:43 Blood Culture - Preliminary Blood - Venous Coag negative Staphylococcus 04/05/22 16:43 Blood Culture - Preliminary Blood - Venous Coag negative Staphylococcus Assessment and Plan (1) Bacteremia due to coagulase-negative Staphylococcus: Status: Acute (2) Hyperlipidemia: Status: Acute (3) Acute hypokalemia: Status: Acute (4) Fall: Status: Acute Plan 81-year-old woman admitted with acute encephalopathy possibly secondary to Gram-positive cocci bacteremia.? 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 CT head unremarkable coagulase negative bacteremia 2 of 2 blood culture bottles drawn at the same time positive, no source of infection found ,case discussed with ID likely contamination no antibiotics recommended. CT abdomen and pelvis, CT chest showed no acute abnormality UA unremarkable, no skin lesions Falls with back pain.? patient offers no complaints of back pain this a.m./ continue Tylenol as needed No injury on imaging, CT cervical spine, head CT, chest CT, abdominal and pelvic CAT scan showed no acute abnormality seen by physical therapy they recommend trial of short-term rehab followed by long-term Diabetes mellitus Sliding scale, ADA diet , continue Januvia 100 mg daily, also taking glipizide 10mg twice daily and metformin 1000mg twice daily, will resume glipizide and hold metformin for 48 hours Hypertension stable blood pressure, Continue lisinopril and hydrochlorothiazide Hyperlipidemia continue statin DVT prophylaxis with Lovenox Full code Patient requires continued inpatient hospitalization for safe disposition, housing case manager arranging for rehab bed Quality Stroke Does the patient have a stroke diagnosis?: No VTE Prior VTE?: No VTE Risk Level:: Medical - moderate - high VTE Device Contraindication: Treatment Not Indicated VTE Drug Contraindication: N/A - Med Ordered
[2022-04-07 11:33] LABS: Glucose, Whole Blood 332 mg/dL (60-115)
--- NOTE | 2022-04-07 12:12 | MHC.CLN ---
NUTRITION CONSULT FOR SKIN INTEGRITY. SCOOTER=14. NO OPEN AREAS NOTED. DIET=DIABETIC 1800 KCAL. NO ADDITIONAL NUTRITION INTERVENTIONS AT THIS TIME.
--- NOTE | 2022-04-07 12:58 | W.PM.IDCN ---
History of Present Illness Data of Consult Service Date: 04/07/22 Requesting physician: Santi Flores Primary Care Provider: Unknown Physician HPI Reason for consult: bacteremia She presents to hospital after fall and had blood cultures drawn and found to have gram positive cocci as part of workup for weakness. She had no fever and had mild elevation WBC. She has no port or active wound She was supposed to go to Rehab but didnt due to bacteremia concern. Review of Systems Review of Systems: Yes all other systems are reviewed and are negative [facility] Past Medical History Medical History Dementia Diabetes mellitus Hypertension Family History Family history: reviewed and not pertinent Social History Social History Household Members: Unknown / Unable to assess Housing: Unknown / Unable to assess Do you presently have visiting nurse or other home services: No Unable to assess alcohol history related to: Unable to respond Alcohol intake: never Patient Tobacco Use Status: Tobacco use Unknown Use of substances other than those prescribed or required for medical reasons: Unknown Currently Displaying Signs/Symptoms of Drug Intoxication Withdrawal: No Advance Directives: No Advance Directives Information Provided: No Do you have thoughts of harming others: None Do you have a plan to hurt others: No Plan Recently lost weight without trying: Unsure How much weight loss: Unsure Patient : No : No Poor oral hygiene: No service: No Current occupational status: retired Meds Allergies Allergy/AdvReac Type Severity Reaction Status Date / Time Penicillins Allergy Mild UNKNOWN Unverified 07/10/20 15:26 penicillin G Allergy Unknown Verified 12/26/18 00:00 Active Medications: Current Medications Acetaminophen (Acetaminophen 325 Mg Tablet) 650 mg PO Q6H PRN PRN Reason: Pain, Mild (Pain Scale 1-3) Atorvastatin Calcium (Atorvastatin Calcium 10 Mg Tablet) 10 mg PO DAILY [facility] Last Admin: 04/07/22 08:21 Dose: Not Given Dextrose (Dextrose 50 % 25 Gm/50 Ml Syringe) 25 gm IVPUSH Q15M PRN; Protocol PRN Reason: per Hypoglycemia Standing Ord. Enoxaparin Sodium (Enoxaparin Sodium 40 Mg/0.4 Ml Syringe) 40 mg SUBCUT Q24H [facility] Last Admin: 04/06/22 20:16 Dose: Not Given Glucose (Glucose Gel 15 Gm Gel..Gram.) 15 gm PO Q15M PRN; Protocol PRN Reason: per Hypoglycemia Standing Ord. Hydrochlorothiazide (Hydrochlorothiazide 25 Mg Tablet) 25 mg PO DAILY [facility]; Protocol Last Admin: 04/07/22 08:22 Dose: Not Given Vancomycin HCl 1,000 mg/ (Sodium Chloride) 270 mls @ 270 mls/hr IV Q24H [facility] Insulin Human Lispro (Insulin Lispro 100 Unit/Ml 3 Ml Vial) 0 unit SUBCUT QIDACHS [facility]; Protocol Last Admin: 04/07/22 12:09 Dose: 8 unit Lisinopril (Lisinopril 20 Mg Tablet) 20 mg PO DAILY [facility]; Protocol Last Admin: 04/07/22 08:22 Dose: Not Given Ondansetron HCl (Ondansetron Hcl 4 Mg/2 Ml Vial) 4 mg IVPUSH Q8H PRN PRN Reason: Nausea and Vomiting Pharmacy Consult (Consult Rx Perform Med Rec) 1 each MISCELLANE ONCE PRN PRN Reason: Consult order Pharmacy Consult (Consult Rx Vancomycin Dosing) 1 each MISCELLANE DAILY PRN PRN Reason: Consult order Sitagliptin Phosphate (Sitagliptin Phosphate 100 Mg Tablet) 100 mg PO DAILY [facility] Last Admin: 04/07/22 08:16 Dose: 100 mg Sodium Chloride (0.9 % Sodium Chloride Flush 3 Ml Syringe) [facility] Last Admin: 04/07/22 08:16 Dose: 3 ml Home Medications Medication Instructions Recorded Confirmed Last Taken Type glipizide 10 mg tablet, extended 1 tab PO BID 04/06/22 04/06/22 Unknown History release 24 hr hydrochlorothiazide 25 mg tablet 1 tab PO DAILY 04/06/22 04/06/22 Unknown History lisinopril 20 mg tablet 1 tab PO DAILY 04/06/22 04/06/22 Unknown History metformin 500 mg tablet 2 tab PO BID 04/06/22 04/06/22 Unknown History simvastatin 20 mg tablet 1 tab PO DAILY 04/06/22 04/06/22 Unknown History sitagliptin 100 mg tablet (Octuvia) 1 tab PO DAILY 04/06/22 04/06/22 Unknown History Physical Exam Vital Signs: Vital Signs: Last Vital Signs Temp 98.9 F 04/07/22 11:15 Pulse 72 04/07/22 11:15 Resp 18 04/07/22 11:15 BP 118/56 L 04/07/22 11:15 Pulse Ox 92 04/07/22 11:15 O2 Del Method 04/07/22 11:15 O2 Flow Rate 2 04/07/22 11:15 BMI result Body Mass Index 28.3 Const: General: cooperative HEENT: Head: Yes normal to inspection Mouth: Normal oral and palatal mucosa present Resp: Effort & Inspection: normal respiratory effort Cardio: Rate: regular rate Rhythm: regular rhythm GI: Palpation (GI): Soft to palpation and nontender Skin: General skin exam: no rashes or lesions noted Results Labs CBC & Chem 7: 04/07/22 04:07 04/07/22 04:07 Labs: Short CBC 04/07/22 Range/Units 04:07 WBC 13.3 H (4.8-10.8) X10*3/uL Hgb 13.7 (12.0-16.0) g/dl Hct 41.0 (37.0-47.0) % Plt Count 222 (160-400) X10*3/uL BMP 04/07/22 04:07 Sodium 138 Potassium 3.3 Chloride 102 Carbon Dioxide 25 BUN 25 H Creatinine 1.02 Calcium 9.5 Microbiology Microbiology Results: Microbiology 04/05/22 16:43 Blood - Venous Blood Culture - Preliminary Coag negative Staphylococcus 04/05/22 16:43 Blood - Venous Blood Culture - Preliminary Coag negative Staphylococcus Assessment and Plan (1) Fall: Status: Acute (2) Bacteremia due to coagulase-negative Staphylococcus: Status: Acute Both blood cultures were drawn at same time There are no sources of gram positive bacteremia seen so likely remains contaminant Fall may be due to generalized weakness not due to infection. Plan Would stop Vancomycin. No further intervention at this time.
[2022-04-07 16:08] LABS: Glucose, Whole Blood 239 mg/dL (60-115)
[2022-04-07] MEDS: Potassium Chloride Packet 20 MEQ PACKET PO (17:06)
[2022-04-07] MEDS: glipiZIDE XL 5 MG TAB.ER.24 PO (17:44)
[2022-04-07 20:26] LABS: Glucose, Whole Blood 317 mg/dL (60-115)
[2022-04-07] MEDS: Enoxaparin Sodium 40 MG/0.4 ML SYRINGE SUBCUT (21:05)
[2022-04-08 07:35] VITALS: BP 161/84; PULSE 84; RESP 18; TEMP 36.4; O2SAT 95
[2022-04-08 08:03] LABS: Glucose, Whole Blood 257 mg/dL (60-115)
[2022-04-08] MEDS: Insulin Lispro 100 UNIT/ML 3 ML VIAL SUBCUT ×2 (08:13→12:12)
[2022-04-08] MEDS: metFORMIN HCl 1,000 MG TABLET 1000 MG PO (08:14)
[2022-04-08] MEDS: lisinopriL 20 MG TABLET PO (08:14)
[2022-04-08] MEDS: 0.9 % Sodium Chloride Flush 3 ML SYRINGE IVFLUSH (08:14)
[2022-04-08] MEDS: SITagliptin Phosphate 100 MG TABLET PO (08:14)
[2022-04-08] MEDS: Atorvastatin Calcium 10 MG TABLET PO (08:14)
[2022-04-08] MEDS: hydroCHLOROthiazide 25 MG TABLET PO (08:14)
[2022-04-08 10:29] VITALS: BP 161/84; PULSE 84; O2SAT 95
[2022-04-08 11:10] VITALS: BP 96/57; PULSE 84; RESP 18; TEMP 35.8; O2SAT 97
[2022-04-08 11:54] LABS: Influenza A PCR NEGATIVE (Negative); Influenza B PCR NEGATIVE (Negative); Resp Syncy Virus RNA Qual PCR NEGATIVE (Negative); SARS COV2 PCR INHOUSE NEGATIVE (Negative)
[2022-04-08 12:02] LABS: Glucose, Whole Blood 329 mg/dL (60-115)
--- NOTE | 2022-04-08 12:26 | MHC.CM.PN ---
NURSE FORMULATION CHEMIST NOTE ELECTRONIC MEDICAL RECORD REVIEQWED ALONG WITH CASE DISCSSED WITH STAFF NURSE, AND PATIENTS AND DAUGHTER, THEY ARE ACCEPTING OF DISCHARGE TODAY AND OF GOING TO [facility] FOR STR, THEY ARE ACCEPTING OF DISCHARGE TODAY AND [facility] TRANSPORTING HCP AND COVID INFO AND CLINICALS SENT [facility]IA [facility] TO THE [facility]ACILITY . DISCHARGE PLAN D/C TO STR AT [facility] TODAY BETWEEN 1-2 PM [facility]IA [facility] MEDICARE IMM 04/06/22
--- NOTE | 2022-04-08 13:06 | PM.DS ---
DS: Providers Provider Date of Service: 04/08/22 Date of admission: 04/06/22 19:21 Primary care physician: Unknown Physician Consults: 04/06/22 17:27 Consult to Infectious Diseases Routine Consulting Provider: Margo Steven Reason for consultation: bacteremia Has provider been notified: No DS: Diagnosis Discharge Diagnosis (1) Bacteremia due to coagulase-negative Staphylococcus: Status: Acute (2) Hyperlipidemia: Status: Acute (3) Acute hypokalemia: Status: Acute (4) Fall: Status: Acute DS: Summary Hospital Course Hospital Course: history of presenting illness chief complaint fall 81-year-old woman with a history of dementia presents to the ER after 2 falls at home.? According to her on Tuesday she had a fall but declined to come to the hospital.? On Tuesday he went to her room to get her some food and wake her up and he found her on the floor in the bathroom and at that point he decided to bring her to the ER.? The plan at that time was to place her for short-term rehab but blood work was taken and subsequently came back today showing Gram-positive cocci 2/2 blood cultures.? Patient has had no fever, leukocytosis.? Urinalysis negative, chest CT was negative for any consolidation or effusion.? Unfortunately, patient has dementia and was unable to participate in the interview. She was started on ceftriaxone in the ER.? Vital signs are stable.? She will be admitted for further management and treatment of bacteremia.? hospital course 81-year-old woman admitted with acute encephalopathy possibly secondary to Gram-positive cocci bacteremia.? Falls at home Acute encephalopathy no acute encephalopathy noted, seems to be at baseline, no lethargy, awake alert , pleasantly confused, likely has underlying? age related dementia. CT head unremarkable ?Coagulase negative bacteremia ?2 of 2 blood culture bottles drawn at the same time positive, no source of infection found ,likely contamination, case discussed with Dr. Steven from Infectious Disease, no antibiotics? recommended. ?CT abdomen and pelvis, CT chest showed no acute abnormality UA unremarkable, no skin lesions, echocardiogram obtain suboptimal study heart valve not visualized. Falls? with back pain.? patient offers no complaints of back pain ,continue Tylenol as needed,No injury on imaging, CT cervical spine, head CT, chest CT, abdominal and pelvic CAT scan showed no acute abnormality seen by physical therapy they recommend short-term rehab Diabetes mellitus noted to have elevated sugars continued all home medications recommend to follow diabetic diet and added Lantus 10 units Hypertension stable blood pressure, Continue lisinopril and hydrochlorothiazide, added potassium supplements for borderline low potassium Hyperlipidemia continue statin. Time Spent with Patient Time attestation: Total time spent providing and/or coordinating discharge services: Discharge coordination time: Greater than 30 minutes Quality: Safe Use of Opioids Does Pt have an Active Cancer Diagnosis on the Problem List?: No Quality: Stroke Does the patient have a stroke diagnosis?: No Physical Exam Vital Signs: Vital Signs: Last Vital Signs Temp 96.4 F L 04/08/22 11:10 Pulse 84 04/08/22 11:10 Resp 18 04/08/22 11:10 BP 96/57 L 04/08/22 11:10 Pulse Ox 97 04/08/22 11:10 O2 Del Method 04/08/22 11:10 O2 Flow Rate 2 04/07/22 11:15 BMI result Body Mass Index 28.3 Const: Other: General? awake alert, resting comfortably, in no acute distress, pleasantly confused.? Neck? no JVD. CVS? regular rate rhythm, Respiratory lungs clear to auscultation, no respiratory distress, no wheeze, no rhonchi. Gastrointestinal abdomen soft, nontender, bowel sounds audible Extremities no? edema. Neuro nonfocal,moving all 4 extremity speech clear. Skin no rash psych poor insight DS: Data Data Completed and Pending Labs on day of discharge: Laboratory Results - last 24 hr 04/07/22 04/07/22 04/08/22 16:05 19:42 07:38 POC Glucose 239 H 317 H 257 H Influenza Type A (PCR) Influenza Type B (PCR) RSV RNA Qual (PCR) SARS-CoV-2 RNA (RT-PCR) 04/08/22 04/08/22 10:46 11:18 POC Glucose 329 H Influenza Type A (PCR) NEGATIVE Influenza Type B (PCR) NEGATIVE RSV RNA Qual (PCR) NEGATIVE SARS-CoV-2 RNA (RT-PCR) NEGATIVE Preliminary micro results at discharge 04/06/22 11:22 Blood Culture - Preliminary Blood - Venous No growth after 24 hours. 04/06/22 11:22 Blood Culture - Preliminary Blood - Venous No growth after 24 hours. Discharge Plan Discharge Patient Disposition: Xfer SNF Discharge Diagnosis: unsteady gait and fall diabetes mellitus hypertension hyperlipidemia Referrals: [facility] [place] [facility] [place]] (Call to establish with a primary care provider, if you have a primary care provider, follow up with their office.) [facility] [place] [facility] [Provider Group] (Call to establish with a primary care provider, if you have a primary care provider, follow up with their office.) [facility] [place] [facility] [Provider Group] (Call to establish with a primary care provider, if you have a primary care provider, follow up with their office.) [facility] [Outside] - 1 Day (transfer to [facility] today 04/08 22 confirmed acceptance by chandan at [facility], [facility] [address] [facility] ) Physician,Brad Morales [Primary Care Provider] - 1 Week Discharge Medications: New potassium chloride 20 mEq tablet extended release 20 meq PO DAILY Qty: 30 0RF insulin glargine [Lantus U-100 Insulin] 100 unit/mL solution 10 unit subcut QPM Qty: 10 0RF Continued metformin 500 mg tablet 2 tab PO BID glipizide 10 mg tablet extended release 24hr 1 tab PO BID lisinopril 20 mg tablet 1 tab PO DAILY simvastatin 20 mg tablet 1 tab PO DAILY hydrochlorothiazide 25 mg tablet 1 tab PO DAILY Januvia 100 mg tablet 1 tab PO DAILY Discharge Orders: Discharge Order (Routine); Ordered 04/08/22 Ordered By: Santi Flores Diet: diabetic diet Activity on Discharge: As tolerated Stand Alone Forms: Patient Portal Discharge page Print Language: Zambian Activity Restrictions/Additional Instructions: Follow up with your primary care provider. Return to the emergency department immediately if your symptoms worsen or if you develop any dizziness, shortness of breath, difficulty breathing, chest pain, blurry vision, loss of vision, nausea, vomiting, abdominal pain, fever, chills, back pain, or any other complaints. Care Plan Goals: follow diabetic diet, monitor blood sugar twice daily, add Lantus if noted to have high blood sugars, Health Concerns: fall with unsteady gait continue physical therapy as tolerated Plan of Treatment: continued outpatient follow-up with primary care physician Assessment: as per dc summary Patient Instructions: Fall Prevention (ED)
== END 2022-04-08 14:02 | disposition skilled nursing facility (03) | DRG 552 ==
LOC: HO.ED 04-06 12:08 → HO.EDOVER 04-06 19:35 → HO.S3 04-07 05:06
PROVIDERS: Emergency Medicine; Nurse Practitioner Acute Care; Physician Assistant Medical; Admitting Provider Internal Medicine; Emergency Provider Emergency Medicine; Visit Provider Hospitalist
DX: M54.9 Dorsalgia, unspecified (principal); E78.5 Hyperlipidemia, unspecified; F03.90 Unspecified dementia, unspecified severity, without behavioral disturbance, psychotic disturbance, mood disturbance, and anxiety; E11.9 Type 2 diabetes mellitus without complications; I10 Essential (primary) hypertension; Z20.822 Contact with and (suspected) exposure to COVID-19; R29.6 Repeated falls; Z86.14 Personal history of Methicillin resistant Staphylococcus aureus infection; Z91.81 History of falling; Z88.0 Allergy status to penicillin; Z79.4 Long term (current) use of insulin; Z79.84 Long term (current) use of oral hypoglycemic drugs; Z79.899 Other long term (current) drug therapy
CPT/HCPCS: 0241U; 36415; 70450; 71250; 72125; 74176; 80048; 80053; 81003; 82947; 83605; 83735; 83880; 84484; 85025; 87040; 87077; 87186; 87205; 87502; 87635; 93005; 93306; 96365; 97110; 97116; 97162; 97530; 99285; J0696; J1650; J3370

== ENCOUNTER 2022-06-11 10:25 | Emergency (ER) | payer MEDICARE, OTHER, SELFPAY ==
--- NOTE | ~2022-06-11 | CT_ITS ---
Indication: Fall EXAMINATION: CT of the brain. Axial imaging with coronal and sagittal reformatted images. Comparison is made to previous exam dated 04/05/2022. This CT examination was performed using dose optimization techniques as appropriate, variously including the following: *Automated exposure control *Adjustment of mA and/or kV according to patient size (this includes techniques or standardized protocols for targeted exams where dose is matched to indication/reason for exam; i.e. extremities or head) *Use of iterative reconstruction technique. Radiation dose 453. Findings; There is no midline shift. There is no mass effect. There is no hemorrhage. The basilar cisterns appear patent. The posterior fossa is grossly within normal limits. There is no extra-axial collection. 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 Scattered white matter ischemic changes. Review of the bone windows demonstrates grossly clear sinuses. CT/CT cervical spine wo con IMPRESSION: Negative acute noncontrast CT of the brain. Atrophy with areas of old infarct and white matter ischemic changes.
--- NOTE | ~2022-06-11 | CT_ITS ---
Indication: Fall EXAMINATION: CT of the brain. Axial imaging with coronal and sagittal reformatted images. Comparison is made to previous exam dated 04/05/2022. This CT examination was performed using dose optimization techniques as appropriate, variously including the following: *Automated exposure control *Adjustment of mA and/or kV according to patient size (this includes techniques or standardized protocols for targeted exams where dose is matched to indication/reason for exam; i.e. extremities or head) *Use of iterative reconstruction technique. Radiation dose 453. Findings; There is no midline shift. There is no mass effect. There is no hemorrhage. The basilar cisterns appear patent. The posterior fossa is grossly within normal limits. There is no extra-axial collection. 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 Scattered white matter ischemic changes. Review of the bone windows demonstrates grossly clear sinuses. CT/CT head/brain wo con IMPRESSION: Negative acute noncontrast CT of the brain. Atrophy with areas of old infarct and white matter ischemic changes.
[2022-06-11 10:35] VITALS: BP 151/86; PULSE 72; O2SAT 98
[2022-06-11 10:36] VITALS: BP 157/69; PULSE 69; RESP 18; TEMP 36.7; O2SAT 97
--- NOTE | 2022-06-11 10:36 | ECG_ITS ---
Test Reason : fall Blood Pressure : / mmHG Vent. Rate : 069 BPM Atrial Rate : 069 BPM P-R Int : 158 ms QRS Dur : 074 ms QT Int : 410 ms P-R-T Axes : 000 065 063 degrees QTc Int : 439 ms Sinus rhythm with Premature supraventricular complexes Septal infarct (cited on or before 01-JUN-2020) Abnormal ECG When compared with ECG of 05-APR-2022 15:54, Nonspecific T wave abnormality, improved in Lateral leads Referred By: Jennifer Arriola Electronically Signed By:LYNNETTE KENYON
[2022-06-11 10:39] VITALS: BP 157/69; PULSE 69; RESP 18; TEMP 36.8; O2SAT 98
[2022-06-11 11:35] LABS: MANUAL DIFF FLAG NO
[2022-06-11 11:38] LABS: Basophils Percent Auto 0.3 % (0-2); Eosinophils Absolute Auto 0.1 X10*3/uL (0.0-0.4); Eosinophils Percent Auto 1.4 % (0-4); Hematocrit 36.7 % (37.0-47.0); Hemoglobin 12.1 g/dl (12.0-16.0); Imm Gran Abs Auto 0.06 X10*3/uL (0.00-0.03); Imm Gran Pct Auto 0.9 % (0.0-0.4); Lymphocytes Absolute Auto 0.7 X10*3/uL (1.2-4.9); Lymphocytes Percent Auto 10.5 % (20-40); Mean Corpuscular Hemoglobin 28.8 pg (27.0-33.0); Mean Corpuscular Volume 87.4 fL (80.0-98.0); Mean Platelet Volume 9.7 fL (9.4-12.3); Monocytes Absolute Auto 0.5 X10*3/uL (0.1-1.2); Monocytes Percent Auto 7.3 % (2-11); Neutrophils Absolute Auto 5.2 x10*3/uL (2.0-8.3); Neutrophils Percent Auto 79.6 % (45-73); Platelet Count 212 X10*3/uL (160-400); Red Cell Distribution Width 15.4 % (11.0-16.0); White Blood Count 6.5 X10*3/uL (4.8-10.8)
[2022-06-11 11:42] LABS: INTERNATIONAL NORM RATIO 0.9 (0.9-1.1); Prothrombin Time 10.5 SEC (10.0-13.1)
--- NOTE | 2022-06-11 11:47 | ED.FALL ---
HPI - Fall General Chief Complaint: Fall Stated Complaint: FALL Time Seen by Provider: 06/11/22 10:36 Source: EMS Mode of arrival: EMS History of Present Illness HPI Narrative: 81-year-old female was brought in by EMS from the residential and uses a wheelchair at baseline. Staff reports that patient experienced an unwitnessed fall striking the right side of her face and shoulder. Patient is not on blood thinners and has a baseline diagnosis diabetes and dementia. Collateral information gathered later by the daughter who is at bedside states that her mother has experienced several falls but that her mother is wheelchair or bed-bound at baseline even though her mother is scheduled for physical therapy. Related Data Home Medications Medication Instructions Recorded Confirmed glipizide 10 mg tablet, extended 1 tab PO BID 04/06/22 04/06/22 release 24 hr hydrochlorothiazide 25 mg tablet 1 tab PO DAILY 04/06/22 04/06/22 lisinopril 20 mg tablet 1 tab PO DAILY 04/06/22 04/06/22 metformin 500 mg tablet 2 tab PO BID 04/06/22 04/06/22 simvastatin 20 mg tablet 1 tab PO DAILY 04/06/22 04/06/22 sitagliptin 100 mg tablet (Januvia) 1 tab PO DAILY 04/06/22 04/06/22 Previous Rx's Medication Instructions Recorded insulin glargine 100 unit/mL 10 unit (0.1 mL) subcut QPM #10 mL 04/08/22 subcutaneous solution (Lantus U-100 Insulin) potassium chloride 20 mEq 20 meq PO DAILY #30 tabs 04/08/22 tablet,extended release Allergies Allergy/AdvReac Type Severity Reaction Status Date / Time Penicillins Allergy Mild UNKNOWN Unverified 07/10/20 15:26 penicillin G Allergy Unknown Verified 12/26/18 00:00 Review of Systems Review of Systems: Yes Unobtainable due to mental condition PMFSH Past Medical History Source: nursing notes reviewed Medical History Dementia Diabetes mellitus Fall Hyperlipidemia Hypertension Social History Social History Household Members: Unknown / Unable to assess Housing: Unknown / Unable to assess Do you presently have visiting nurse or other home services: No Unable to assess alcohol history related to: Unable to respond Alcohol intake: never Patient Tobacco Use Status: Tobacco use Unknown Advance Directives: Yes Advance Directives on File: Yes Advance Directives Date on File: 04/05/22 service: No Current occupational status: retired Physical Exam Vital Signs: Vital Signs: Last Vital Signs Temp 98.3 F 06/11/22 10:39 Pulse 69 06/11/22 10:39 Resp 18 06/11/22 10:39 BP 157/69 H 06/11/22 10:39 Pulse Ox 98 06/11/22 10:39 O2 Del Method 06/11/22 10:39 BMI result Body Mass Index 30.0 VITAL SIGNS: Reviewed. GENERAL: Well developed, well nourished, in no acute distress. HEAD: Normocephalic/mild superficial abrasions to right side of the face without deformity EYES: PERRLA, EOMI EARS: Ext canals without abnormality NOSE: Nares patent bilateral OROPHARYNX: no oral lesions noted, posterior pharynx clear NECK: Supple, no adenopathy LUNGS: Normal breath sounds. SpO2<98> CARDIOVASCULAR: Regular rate and rhythm without noted murmurs, no JVD or lower extremity edema. ABDOMEN: Soft, non-tender, non-distended with bowel sounds. MUSCULOSKELETAL: No tenderness, deformities, or effusions noted on gross inspection. EXTREMITIES: No cyanosis, clubbing or edema. SKIN: Inspection of the skin reveals no rashes NEUROLOGIC: Alert and oriented x 2. Strength and sensation to light touch were grossly intact x 4. Course Course Course Narrative: 81-year-old female with history and clinical presentation consistent with repeated falls and feel that this is secondary to deconditioning. After review of all investigations there are no acute findings to suggest infection or anemia and CT imaging of head and neck are otherwise benign. MDM - Fall Lab Data Result diagrams: 06/11/22 11:31 06/11/22 11:31 Labs: Lab Results 06/11/22 06/11/22 06/11/22 Range/Units 11:31 11:31 11:31 WBC 6.5 (4.8-10.8) X10*3/uL RBC 4.20 (4.20-5.50) X10*6/uL Hgb 12.1 (12.0-16.0) g/dl Hct 36.7 L (37.0-47.0) % MCV 87.4 (80.0-98.0) fL MCH 28.8 (27.0-33.0) pg MCHC 33.0 (31.0-35.0) g/dl RDW 15.4 (11.0-16.0) % Plt Count 212 (160-400) X10*3/uL MPV 9.7 (9.4-12.3) fL Immature Gran % (Auto) 0.9 H (0.0-0.4) % Neut % (Auto) 79.6 H (45-73) % Lymph % (Auto) 10.5 L (20-40) % Orange % (Auto) 7.3 (2-11) % Eos % (Auto) 1.4 (0-4) % Baso % (Auto) 0.3 (0-2) % Lymph # (Auto) 0.7 L (1.2-4.9) X10*3/uL Orange # (Auto) 0.5 (0.1-1.2) X10*3/uL Eos # (Auto) 0.1 (0.0-0.4) X10*3/uL Baso # (Auto) 0.0 (0.0-0.2) X10*3/uL Abs Immat Gran (auto) 0.06 H (0.00-0.03) X10*3/uL Absolute Neuts (auto) 5.2 (2.0-8.3) x10*3/uL Absolute Nucleated RBC 0.000 (0.0-0.012) X10*3/uL Nucleated RBC % (auto) 0.0 (0.0-0.2) /100WBC PT 10.5 (10.0-13.1) SEC INR 0.9 (0.9-1.1) Sodium 136 (135-145) mmol/L Potassium 3.6 (3.3-5.1) mmol/L Chloride 100 (96-108) mmol/L Carbon Dioxide 25 (22-29) mmol/L Anion Gap 15 (12-20) BUN 21 H (9-16) mg/dL Creatinine 1.05 (0.5-1.4) mg/dL Estim Creat Clear Calc 46.8 Estimated GFR 50 Random Glucose 367 H* (60-115) mg/dL Calcium 8.7 D (8.4-10.2) mg/dL Total Bilirubin 0.6 (0.0-1.0) mg/dL AST 25 D (5-31) U/L ALT 31 (0-31) U/L Alkaline Phosphatase 165 H D (39-117) U/L Troponin I High Sens (<3.5-17.0) ng/L Total Protein 6.1 L (6.5-8.0) g/dL Albumin 3.4 L (3.5-5.0) g/dL Urine Color Urine Appearance Urine pH (5.0-8.0) Ur Specific [place] (1.005-1.025) Urine Protein (Neg-Trace) mg/dL Urine Glucose (UA) (Negative) mg/dL Urine Ketones (Negative) mg/dL Urine Blood (Negative) Urine Nitrite (Negative) Ur Leukocyte Esterase (Negative) Urine RBC (0-2) /HPF Urine WBC (0-5) /HPF Ur Squamous Epith Cells (0-2) /HPF Urine Bacteria (None Seen) Hyaline Casts (0-2) /LPF 06/11/22 06/11/22 Range/Units 11:31 14:04 WBC (4.8-10.8) X10*3/uL RBC (4.20-5.50) X10*6/uL Hgb (12.0-16.0) g/dl Hct (37.0-47.0) % MCV (80.0-98.0) fL MCH (27.0-33.0) pg MCHC (31.0-35.0) g/dl RDW (11.0-16.0) % Plt Count (160-400) X10*3/uL MPV (9.4-12.3) fL Immature Gran % (Auto) (0.0-0.4) % Neut % (Auto) (45-73) % Lymph % (Auto) (20-40) % Orange % (Auto) (2-11) % Eos % (Auto) (0-4) % Baso % (Auto) (0-2) % Lymph # (Auto) (1.2-4.9) X10*3/uL Orange # (Auto) (0.1-1.2) X10*3/uL Eos # (Auto) (0.0-0.4) X10*3/uL Baso # (Auto) (0.0-0.2) X10*3/uL Abs Immat Gran (auto) (0.00-0.03) X10*3/uL Absolute Neuts (auto) (2.0-8.3) x10*3/uL Absolute Nucleated RBC (0.0-0.012) X10*3/uL Nucleated RBC % (auto) (0.0-0.2) /100WBC PT (10.0-13.1) SEC INR (0.9-1.1) Sodium (135-145) mmol/L Potassium (3.3-5.1) mmol/L Chloride (96-108) mmol/L Carbon Dioxide (22-29) mmol/L Anion Gap (12-20) BUN (9-16) mg/dL Creatinine (0.5-1.4) mg/dL Estim Creat Clear Calc Estimated GFR Random Glucose (60-115) mg/dL Calcium (8.4-10.2) mg/dL Total Bilirubin (0.0-1.0) mg/dL AST (5-31) U/L ALT (0-31) U/L Alkaline Phosphatase (39-117) U/L Troponin I High Sens 7.1 (<3.5-17.0) ng/L Total Protein (6.5-8.0) g/dL Albumin (3.5-5.0) g/dL Urine Color Yellow Urine Appearance Clear Urine pH 6.0 (5.0-8.0) Ur Specific [place] 1.020 (1.005-1.025) Urine Protein Trace (Neg-Trace) mg/dL Urine Glucose (UA) >=1000 H (Negative) mg/dL Urine Ketones 15 (Negative) mg/dL Urine Blood Negative (Negative) Urine Nitrite Negative (Negative) Ur Leukocyte Esterase Negative (Negative) Urine RBC 0-2 (0-2) /HPF Urine WBC 0-5 (0-5) /HPF Ur Squamous Epith Cells 0-2 (0-2) /HPF Urine Bacteria None Seen (None Seen) Hyaline Casts 0-2 (0-2) /LPF ECG Data Attestation: I personally reviewed and interpreted this ECG as follows: Prior ECG tracings: available for review Interpretation: Sinus rhythm, HR-69, no STEMI, [place]/QRS/QTC is within normal limits. Discharge Plan Discharge Clinical Impression: Recurrent falls, Physical deconditioning, Dementia Patient Disposition: [facility] Instructions: Fall Prevention for Older Adults (ED), Dementia (ED) Additional Instructions: Resume all home medications as prescribed. Continue with physical therapy for conditioning. Return to the ER for worsening symptoms. Prescriptions: No Action metformin 500 mg tablet 2 tab PO BID glipizide 10 mg tablet extended release 24hr 1 tab PO BID lisinopril 20 mg tablet 1 tab PO DAILY simvastatin 20 mg tablet 1 tab PO DAILY hydrochlorothiazide 25 mg tablet 1 tab PO DAILY Januvia 100 mg tablet 1 tab PO DAILY potassium chloride 20 mEq tablet extended release 20 meq PO DAILY Qty: 30 0RF insulin glargine [Lantus U-100 Insulin] 100 unit/mL solution 10 unit subcut QPM Qty: 10 0RF
[2022-06-11 11:55] LABS: Troponin-I High Sensitivity 7.1 ng/L (<3.5-17.0)
[2022-06-11 12:10] LABS: Alanine Aminotransferase 31 U/L (0-31); Albumin Level 3.4 g/dL (3.5-5.0); Alkaline Phosphatase 165 U/L (39-117); Anion Gap 15 (12-20); Aspartate Amino Transferase 25 U/L (5-31); Bilirubin Total 0.6 mg/dL (0.0-1.0); Blood Urea Nitrogen 21 mg/dL (9-16); Calcium 8.7 mg/dL (8.4-10.2); Carbon Dioxide 25 mmol/L (22-29); Chloride 100 mmol/L (96-108); Creatinine Clr Calc Pharmacy 46.8; Estimated Glomerular Filt Rate 50; Glucose Random 367 mg/dL (60-115); Potassium 3.6 mmol/L (3.3-5.1); Sodium 136 mmol/L (135-145); Total Protein 6.1 g/dL (6.5-8.0)
[2022-06-11 14:10] LABS: Appearance Urine Clear; Color Urine Yellow; Glucose Urine UA >=1000 mg/dL (Negative); Leukocyte Esterase Urine Negative (Negative); Nitrite Urine Negative (Negative); Urine Blood Negative (Negative); Urine Ketones 15 mg/dL (Negative); Urine Protein Trace mg/dL (Neg-Trace)
[2022-06-11 14:24] LABS: RBC Urine 0-2 /HPF (0-2); Squamous Epithelial Cell Urine 0-2 /HPF (0-2); WBC Urine 0-5 /HPF (0-5)
[2022-06-11 14:25] LABS: Bacteria Urine None Seen (None Seen); Hyaline Casts Urine 0-2 /LPF (0-2)
--- NOTE | 2022-06-11 15:02 | PC.NURSE ---
Report given to RN at [facility]
[2022-06-11 15:09] VITALS: BP 159/75; PULSE 82; RESP 18; O2SAT 96
== END 2022-06-11 16:22 | disposition skilled nursing facility (03) ==
PROVIDERS: Emergency Provider Student in an Organized Health Care Education/Training Program; PCP Internal Medicine
DX: F03.90 Unspecified dementia, unspecified severity, without behavioral disturbance, psychotic disturbance, mood disturbance, and anxiety (principal); R51.9 Headache, unspecified; M54.2 Cervicalgia; R07.89 Other chest pain; Z79.899 Other long term (current) drug therapy
CPT/HCPCS: 36415; 70450; 72125; 80053; 81001; 84484; 85025; 85610; 93005; 99284; 99285

== ENCOUNTER 2022-07-31 20:10 | Emergency (ER) | payer MEDICARE, OTHER, MEDICAID, SELFPAY ==
[2022-07-31 20:23] VITALS: BP 171/80; BP 180/90; PULSE 70; PULSE 75; RESP 19; O2SAT 96; O2SAT 97; BMI 31.4
[2022-07-31] MEDS: Lidocaine HCl 2% PF/Epi 1:200 20 ML VIAL INFILTRATI (20:45)
--- NOTE | 2022-07-31 20:55 | ED.FALL ---
HPI - Fall General Chief Complaint: Fall Stated Complaint: head lac from fall Time Seen by Provider: 07/31/22 20:23 Source: EMS Mode of arrival: EMS Limitations: altered mental status (Dementia with memory deficits) History of Present Illness HPI Narrative: 81-year-old female who was sent to the emergency department for evaluation of a witnessed fall out of her wheelchair. According to EMS, staff at her [facility] facility saw her fall out of her wheelchair in strike her head. The patient sustained a laceration to her left forehead . She had no loss of consciousness. Patient has dementia and lacks insight as to why she is here in the emergency department. She has no complaints. complaint: fall Onset (ago): minute(s) (30) Fall from: wheelchair Fall witnessed: yes, by living facility staff Place fall occurred: skilled nursing/SNF Loss of consciousness: none Prolonged down time: no Symptoms prior to fall: none Context: other (Fell out of wheelchair) Location of injury: head Related Data Home Medications Medication Instructions Recorded Confirmed sitagliptin 100 mg tablet (Januvia) 1 tab PO DAILY 04/06/22 07/31/22 insulin glargine 100 unit/mL 15 unit subcut QPM 07/31/22 07/31/22 subcutaneous solution (Lantus U-100 Insulin) trazodone 50 mg tablet 50 mg PO BEDTIME 07/31/22 07/31/22 Previous Rx's Medication Instructions Recorded potassium chloride 20 mEq 20 meq PO DAILY #30 tabs 04/08/22 tablet,extended release Allergies Allergy/AdvReac Type Severity Reaction Status Date / Time Penicillins Allergy Mild UNKNOWN Unverified 07/10/20 15:26 penicillin G Allergy Unknown Verified 12/26/18 00:00 Review of Systems Review of Systems: Yes all other systems are reviewed and are negative [facility] Past Medical History [facility] Narrative: Social history: The patient lives in [facility], she does not smoke cigarettes, she does not drink alcohol, she does not use drugs. Medical History Dementia Diabetes mellitus Fall Hyperlipidemia Hypertension Social History Social History Household Members: Unknown / Unable to assess Housing: Unknown / Unable to assess Do you presently have visiting nurse or other home services: No Unable to assess alcohol history related to: Unable to respond Alcohol intake: unknown Patient Tobacco Use Status: Tobacco use Unknown Advance Directives: Yes Advance Directives on File: Yes Advance Directives Date on File: 04/05/22 service: No Current occupational status: retired Physical Exam Vital Signs: Vital Signs: Last Vital Signs Pulse 75 07/31/22 20:23 Resp 19 07/31/22 20:23 BP 171/80 H 07/31/22 20:23 Pulse Ox 96 07/31/22 20:23 O2 Del Method 07/31/22 20:23 BMI result Body Mass Index 31.4 Const: Other: Awake, alert, female patient, she lacks insight as to why she is here in the emergency department. Orientation/consciousness: oriented to person HEENT: Other: Patient has a 4.5 cm v-shaped laceration to her left forehead, this is a full skin thickness laceration and does go into the muscle layer. The patient does have tenderness palpation around this area, there is no obvious hematoma. Ears: external ears normal General nose exam: Normal external nose present Mouth: Normal oral and palatal mucosa present Throat: Yes posterior oropharynx normal Eyes: General: appearance normal, both eyes and all related structures Pupils: Equal, round and reactive pupils present Neck: Neck: Yes normal visual inspection, Yes no lymphadenopathy, Yes trachea midline and Yes supple Chest: Chest palpation & inspection: normal inspection of the chest and normal palpation of entire chest wall Resp: Effort & Inspection: normal respiratory effort and able to speak in complete sentences Auscultation: clear to auscultation bilaterally Cardio: Rate: regular rate Rhythm: regular rhythm Heart sounds: S1 normal heart sound present, S2 normal heart sound present and no murmurs GI: Inspection: Yes normal to inspection Palpation (GI): Soft to palpation, nontender and no guarding Auscultation: normal bowel sounds : General: Yes no CVA tenderness Back/Spine/Pelvis: Back: no CVA tenderness Skin: General skin exam: no rashes or lesions noted Neuro: General: oriented to person Cranial nerves: Yes CN's II-XII intact bilaterally and Yes Equal, round and reactive pupils present Motor exam (neuro): 5/5 motor strength present throughout Extrem: General: Yes normal to inspection Psych: Appearance: grossly normal Speech and movement: Normal speech and movement present Course Course Course Narrative: 81-year-old female who presents emergency department for evaluation of left forehead laceration, closed head injury after a fall from her wheelchair at her [facility] facility. This was a witnessed fall. The patient had no loss of consciousness. The patient's examination did reveal a suturable laceration which was repaired by me. I did order a CT scan of the patient's head and neck to rule out injury from the fall. The patient's was here in the emergency room and I did discuss my treatment plan with him. He states that he has to go home but we will contact him if there is any concerns regarding the CT scans. 2232: CT scan of the patient's head and cervical spine revealed no acute findings. Patient will be discharged back to her nursing facility. 0208: Start physician observation: At this time, we cannot arrange transport back to the patient's facility and the patient will need to be kept in the emergency department until we can get an appropriate EMS transport, therefore she was placed in physician observation. I did review the patient's medications, there were reconciled and I did order her outpatient medication regimen. We will check a point of care glucose before meals 4 times a day and I did order her a diabetic diet as well. At the end of my shift, the patient's care was turned over to my colleague, Dr. Jannet Hayes. Procedures Laceration 4.5 cm left V shaped forehead laceration: Site: face Side (If applicable): left Size (cm): 4.5 Description: stellate (V shaped) Depth: involves muscle layer Local Anesthetic: lidocaine 2% and with epi Amount of anesthesia used (mL): 8 Pre-repair: wound explored and irrigated extensively Skin layer closed with: vicryl Size (cm): 5-0 Number of sutures: 6 Technique: simple, interrupted Discharge Plan Discharge Clinical Impression: Fall Qualifiers: Encounter type: initial encounter Qualified Code(s): W19.XXXA - Unspecified fall, initial encounter Closed head injury Qualifiers: Encounter type: initial encounter Qualified Code(s): S09.90XA - Unspecified injury of head, initial encounter Forehead laceration Qualifiers: Encounter type: initial encounter Qualified Code(s): S01.81XA - Laceration without foreign body of other part of head, initial encounter Patient Disposition: [facility] Transfer Details: Return to patient's [facility] facility Instructions: Head Injury (ED) Additional Instructions: Your forehead laceration was repaired with Vicryl sutures 5.0. A total of 6 sutures were used. The sutures need to be removed by your provider in 10-14 days. Apply bacitracin twice a day until the sutures are removed. Watch for signs of infection which would include increased redness, increased swelling, drainage of pus, red streaks going away from the wound, fever, chills. The CT scan of your head revealed no skull fracture and no bleeding in your brain. The CT scan of your cervical spine revealed no fractures. Follow-up with your doctor in 2 days. Please return to the emergency department if your symptoms get worse or if you develop any symptoms that are concerning to you. Prescriptions: No Action Januvia 100 mg tablet 1 tab PO DAILY potassium chloride 20 mEq tablet extended release 20 meq PO DAILY Qty: 30 0RF insulin glargine [Lantus U-100 Insulin] 100 unit/mL solution 15 unit subcut QPM trazodone 50 mg tablet 50 mg PO BEDTIME
--- NOTE | 2022-07-31 21:12 | PC.NURSE ---
Pt. alert to self only. Baseline dementia. Pt. complains of pain to the touch, anywhere on the body with more intense pain on the forehead above left eye where there is a laceration from her fall. MD stitched laceration. A non-stick pad with bacitracin is applied to the wound and wrapped with gauze. Pt. tolerated procedure well. Pt. currently resting in bed with eyes closed.
--- NOTE | 2022-07-31 22:39 | PC.NURSE ---
Call out to [facility] @[phone] to book transport back to [facility]
[2022-08-01 06:16] VITALS: BP 156/82; PULSE 74; RESP 14; TEMP 36.9; O2SAT 99
[2022-08-01 07:13] VITALS: BP 196/91; PULSE 71; RESP 18; TEMP 36.6; O2SAT 98
[2022-08-01] MEDS: SITagliptin Phosphate 100 MG TABLET PO (08:49)
[2022-08-01] MEDS: Potassium Chloride ER 20 MEQ TAB.ER.PRT PO (08:49)
--- NOTE | 2022-08-01 09:14 | PC.NURSE ---
Nurse to nurse report given to Marielle siidro to nurse assuming care for PT.
== END 2022-08-01 09:03 | disposition skilled nursing facility (03) ==
PROVIDERS: Emergency Provider Emergency Medicine; PCP Internal Medicine
DX: S09.90XA Unspecified injury of head, initial encounter (principal); S01.81XA Laceration without foreign body of other part of head, initial encounter; W05.0XXA Fall from non-moving wheelchair, initial encounter; E11.9 Type 2 diabetes mellitus without complications; I10 Essential (primary) hypertension; E78.5 Hyperlipidemia, unspecified; F03.90 Unspecified dementia, unspecified severity, without behavioral disturbance, psychotic disturbance, mood disturbance, and anxiety; R29.6 Repeated falls; Z91.81 History of falling; Y93.89 Activity, other specified; Y92.129 Unspecified place in nursing home as the place of occurrence of the external cause; Y99.9 Unspecified external cause status; Z79.4 Long term (current) use of insulin
CPT/HCPCS: 12052; 70450; 72125; 82947; 99284

== ENCOUNTER 2023-01-11 16:01 | Emergency (ER) | payer MEDICARE, OTHER, MEDICAID, SELFPAY ==
--- NOTE | ~2023-01-11 | US_ITS ---
EXAMINATION: NONINVASIVE ASSESSMENT OF THE ARTERIES OF BOTH LOWER EXTREMITIES Edinson Alvarenga MD CLINICAL INFORMATION: Popliteal occlusion with cold feet. Extensive bilateral DVT seen on bilateral lower extremity ultrasound yesterday performed [facility]. TECHNIQUE: Bilateral lower extremity duplex ultrasound was performed with velocity measurements and waveform analysis in the common femoral arteries, profunda femoris arteries, proximal mid and distal superficial femoral arteries, popliteal arteries and tibial vessels. This study was performed only at rest. COMPARISON: None FINDINGS: Velocities in cm/sec and phasicity as well as the presence of plaque are reported below. Only mild calcific plaque is present. Flow throughout both lower extremities is multiphasic. RIGHT LEG: Common Femoral: 111 Profunda Femoris: 75 Proximal SFA: 61 Mid SFA: 51 Distal SFA: 64 Popliteal: 42 Posterior tibial: 41 Peroneal: Not visualized LEFT LEG: Common Femoral: 101 Profunda Femoris: 115 Proximal SFA: 107 Mid SFA: 121 Distal SFA: 159 Popliteal: 152 Posterior tibial: 84 Peroneal: Not visualized US/US arterial duplex LE BI IMPRESSION: There is no evidence of any hemodynamically significant lower extremity arterial disease by waveform or duplex Doppler criteria at rest.
[2023-01-11 16:05] VITALS: BP 108/60; BP 150/100; PULSE 80; PULSE 85; RESP 16; O2SAT 92; O2SAT 96; BMI 21.7
--- NOTE | 2023-01-11 16:09 | ED.EXTPRO ---
HPI - Extremity Problem General Chief complaint: Extremity Problem Stated complaint: + DVT in both legs Time Seen by Provider: 01/11/23 16:09 Source: EMS and RN notes reviewed Mode of arrival: EMS Limitations: altered mental status History of Present Illness HPI Narrative: Patient 82 years old with history of dementia hypertension diabetes comes here for discoloration of the both feet since yesterday had venous Doppler donewhich showed bilateral DVT's extended from saphenofemoral junction , B/l cfv, FV, popliteal V and R post tibial vein patient with severe dementia complaining of pain in both feet when touched Related Data Home Medications Medication Instructions Recorded Confirmed docusate sodium 100 mg capsule 100 mg PO BID 01/11/23 01/11/23 (Colace) insulin glargine 100 unit/mL (3 15 unit subcut BEDTIME 01/11/23 01/11/23 mL) subcutaneous pen (Basaglar KwikPen U-100 Insulin) sitagliptin phosphate 50 mg tablet 1 tab PO DAILY 01/11/23 01/11/23 (Januvia) Previous Rx's Medication Instructions Recorded apixaban 2.5 mg tablet (Eliquis) 2.5 mg PO BID #60 tabs 01/11/23 Allergies Allergy/AdvReac Type Severity Reaction Status Date / Time Penicillins Allergy Mild UNKNOWN Unverified 07/10/20 15:26 penicillin G Allergy Unknown Verified 12/26/18 00:00 Review of Systems Review of Systems: Yes Unobtainable due to mental status PMFSH Past Medical History Medical History Dementia Diabetes mellitus Fall Hyperlipidemia Hypertension Social History Social History Household Members: Unknown / Unable to assess Housing: Unknown / Unable to assess Do you presently have visiting nurse or other home services: No Unable to assess alcohol history related to: Unable to respond Alcohol intake: unknown Patient Tobacco Use Status: Tobacco use Unknown Advance Directives: Yes Advance Directives on File: Yes Advance Directives Date on File: 04/05/22 service: No Current occupational status: retired Physical Exam Vital Signs: Vital Signs: Last Vital Signs Temp 97.4 F 01/11/23 20:56 Pulse 88 01/11/23 20:56 Resp 16 01/11/23 20:56 BP 112/50 L 01/11/23 20:56 Pulse Ox 95 01/11/23 20:56 O2 Del Method 01/11/23 16:05 BMI result Body Mass Index 22.1 Appearance: Alert. Oriented 1-2. No acute distress. Eyes: PERRLA, No Nystagmus ENT: Pharynx normal. Oral Mucosa moist Neck: Normal inspection. Neck supple. CVS: Normal heart rate and rhythm. Pulses normal. Respiratory: No respiratory distress. Equal air entry bilateral, no wheezing/rales/rhonchi Abdomen: Soft and nontender. Bowel sounds are present, no mass palpable, no CVA tenderness Skin: Skin warm and dry. Normal skin color. Normal skin turgor. Extremities: No lower extremity edema. No calf tenderness cold toes with purple discoloration pictures as attached absent DP and post tibial , Neuro: Oriented X 2. No motor deficit. Medications Administered Generic Name Dose Route Start Last Admin Trade Name Freq PRN Reason Stop Dose Admin Heparin Sodium/Sodium Chloride 25,000 unit in 250 mls @ 0 mls/hr 01/11/23 16:45 01/11/23 21:13 Heparin Sodium,Porcine/1/2ns IVCONT Infused .Q0M BRUCE Titration Protocol Per Protocol Discontinued Medications Generic Name Dose Route Start Last Admin Trade Name Freq PRN Reason Stop Dose Admin Heparin Sodium (Porcine) 5,000 unit 01/11/23 16:16 01/11/23 16:31 Heparin Sodium,Porcine 5,000 Unit/Ml Vial IVPUSH 01/11/23 16:17 5,000 unit ONCE ONE Administration Sodium Chloride 1,000 mls @ 999 mls/hr 01/11/23 17:11 01/11/23 18:12 Ns IV 01/11/23 18:11 Infused .Q1H1M ONE Infusion Insulin Glargine 15 unit 01/11/23 20:03 01/11/23 20:39 Insulin Glargine,Hum.Rec.Anlog 100 Unit/Ml 10 Ml Vial SUBCUT 01/11/23 20:04 15 unit ONCE ONE Administration Insulin Human Lispro 14 unit 01/11/23 17:11 01/11/23 17:16 Insulin Lispro 100 Unit/Ml 3 Ml Vial SUBCUT 01/11/23 17:12 14 unit ONCE ONE Administration Insulin Human Lispro 8 unit 01/11/23 20:03 01/11/23 20:40 Insulin Lispro 100 Unit/Ml 3 Ml Vial SUBCUT 01/11/23 20:04 8 unit ONCE ONE Administration Medical Decision Making Medical Decision Making [facility] Narrative: Patient with massive amount of blood clots in both lower extremities saturating 96% at room air no signs of right side heart strain. Arterial Doppler of the lower extremity negative for significant hemodynamically occlusion. Case discussed with patient's power of collections attorney daughter Mira huynh does not want per patient wishes further test or procedures does not want IVC filter to prevent PE would like the patient to go back to longterm on supportive treatment agreed for Eliquis family aware about risk. Patient troponin is elevated to 78.5 likely from JOSE. Patient denies any chest, patient refused to stay for further management Consult Healthcare Provider Management of the patient was discussed with: Hospitalist Lab Data [facility] Lab Attestation statement: I reviewed the patient's lab results. 01/11/23 16:20 01/11/23 16:20 Labs: Lab Results 01/11/23 01/11/23 01/11/23 Range/Units 16:20 16:20 16:20 WBC 16.6 H (4.8-10.8) X10*3/uL RBC 4.88 (4.20-5.50) X10*6/uL Hgb 12.7 (12.0-16.0) g/dl Hct 41.9 (37.0-47.0) % MCV 85.9 (80.0-98.0) fL MCH 26.0 L (27.0-33.0) pg MCHC 30.3 L (31.0-35.0) g/dl RDW 14.5 (11.0-16.0) % Plt Count 228 (160-400) X10*3/uL MPV 11.0 (9.4-12.3) fL Immature Gran % (Auto) 1.7 H (0.0-0.4) % Neut % (Auto) 85.5 H (45-73) % Lymph % (Auto) 7.6 L (20-40) % Lipscomb % (Auto) 4.3 (2-11) % Eos % (Auto) 0.7 (0-4) % Baso % (Auto) 0.2 (0-2) % Lymph # (Auto) 1.3 (1.2-4.9) X10*3/uL Lipscomb # (Auto) 0.7 (0.1-1.2) X10*3/uL Eos # (Auto) 0.1 (0.0-0.4) X10*3/uL Baso # (Auto) 0.0 (0.0-0.2) X10*3/uL Abs Immat Gran (auto) 0.28 H (0.00-0.03) X10*3/uL Absolute Neuts (auto) 14.2 H (2.0-8.3) x10*3/uL Absolute Nucleated RBC 0.000 (0.0-0.012) X10*3/uL Nucleated RBC % (auto) 0.0 (0.0-0.2) /100WBC PT 12.6 (10.0-13.1) SEC INR 1.1 (0.9-1.1) APTT 29.2 (26.0-36.4) SEC Sodium 152 H (135-145) mmol/L Potassium 3.8 (3.3-5.1) mmol/L Chloride 112 H (96-108) mmol/L Carbon Dioxide 24 (22-29) mmol/L Anion Gap 20 (12-20) BUN 87 H (9-16) mg/dL Creatinine 1.87 H (0.5-1.4) mg/dL Estim Creat Clear Calc 22.9 Estimated GFR 26 POC Glucose (60-115) mg/dL Random Glucose 473 H* (60-115) mg/dL Calcium 9.7 D (8.4-10.2) mg/dL Total Bilirubin 0.9 (0.0-1.0) mg/dL AST 16 (5-31) U/L ALT 10 (0-31) U/L Alkaline Phosphatase 102 (39-117) U/L Troponin I High Sens (<3.5-17.0) ng/L Total Protein 7.7 (6.5-8.0) g/dL Albumin 4.0 (3.5-5.0) g/dL COVID-19 (KIM) (Negative) COVID-19 Clin Com 03/21/23 03/21/23 03/21/23 Range/Units 16:20 17:11 19:24 WBC (4.8-10.8) X10*3/uL RBC (4.20-5.50) X10*6/uL Hgb (12.0-16.0) g/dl Hct (37.0-47.0) % MCV (80.0-98.0) fL MCH (27.0-33.0) pg MCHC (31.0-35.0) g/dl RDW (11.0-16.0) % Plt Count (160-400) X10*3/uL MPV (9.4-12.3) fL Immature Gran % (Auto) (0.0-0.4) % Neut % (Auto) (45-73) % Lymph % (Auto) (20-40) % Lipscomb % (Auto) (2-11) % Eos % (Auto) (0-4) % Baso % (Auto) (0-2) % Lymph # (Auto) (1.2-4.9) X10*3/uL Lipscomb # (Auto) (0.1-1.2) X10*3/uL Eos # (Auto) (0.0-0.4) X10*3/uL Baso # (Auto) (0.0-0.2) X10*3/uL Abs Immat Gran (auto) (0.00-0.03) X10*3/uL Absolute Neuts (auto) (2.0-8.3) x10*3/uL Absolute Nucleated RBC (0.0-0.012) X10*3/uL Nucleated RBC % (auto) (0.0-0.2) /100WBC PT (10.0-13.1) SEC INR (0.9-1.1) APTT (26.0-36.4) SEC Sodium (135-145) mmol/L Potassium (3.3-5.1) mmol/L Chloride (96-108) mmol/L Carbon Dioxide (22-29) mmol/L Anion Gap (12-20) BUN (9-16) mg/dL Creatinine (0.5-1.4) mg/dL Estim Creat Clear Calc Estimated GFR POC Glucose 411 H* 326 H (60-115) mg/dL Random Glucose (60-115) mg/dL Calcium (8.4-10.2) mg/dL Total Bilirubin (0.0-1.0) mg/dL AST (5-31) U/L ALT (0-31) U/L Alkaline Phosphatase (39-117) U/L Troponin I High Sens (<3.5-17.0) ng/L Total Protein (6.5-8.0) g/dL Albumin (3.5-5.0) g/dL COVID-19 (KIM) Negative (Negative) COVID-19 Clin Com See Note 01/11/23 Range/Units 22:17 WBC (4.8-10.8) X10*3/uL RBC (4.20-5.50) X10*6/uL Hgb (12.0-16.0) g/dl Hct (37.0-47.0) % MCV (80.0-98.0) fL MCH (27.0-33.0) pg MCHC (31.0-35.0) g/dl RDW (11.0-16.0) % Plt Count (160-400) X10*3/uL MPV (9.4-12.3) fL Immature Gran % (Auto) (0.0-0.4) % Neut % (Auto) (45-73) % Lymph % (Auto) (20-40) % Lipscomb % (Auto) (2-11) % Eos % (Auto) (0-4) % Baso % (Auto) (0-2) % Lymph # (Auto) (1.2-4.9) X10*3/uL Lipscomb # (Auto) (0.1-1.2) X10*3/uL Eos # (Auto) (0.0-0.4) X10*3/uL Baso # (Auto) (0.0-0.2) X10*3/uL Abs Immat Gran (auto) (0.00-0.03) X10*3/uL Absolute Neuts (auto) (2.0-8.3) x10*3/uL Absolute Nucleated RBC (0.0-0.012) X10*3/uL Nucleated RBC % (auto) (0.0-0.2) /100WBC PT (10.0-13.1) SEC INR (0.9-1.1) APTT (26.0-36.4) SEC Sodium (135-145) mmol/L Potassium (3.3-5.1) mmol/L Chloride (96-108) mmol/L Carbon Dioxide (22-29) mmol/L Anion Gap (12-20) BUN (9-16) mg/dL Creatinine (0.5-1.4) mg/dL Estim Creat Clear Calc Estimated GFR POC Glucose (60-115) mg/dL Random Glucose (60-115) mg/dL Calcium (8.4-10.2) mg/dL Total Bilirubin (0.0-1.0) mg/dL AST (5-31) U/L ALT (0-31) U/L Alkaline Phosphatase (39-117) U/L Troponin I High Sens 78.5 H* (<3.5-17.0) ng/L Total Protein (6.5-8.0) g/dL Albumin (3.5-5.0) g/dL COVID-19 (KIM) (Negative) COVID-19 Clin Com Independent Interpretation I performed an independent interpretation of an: EKG Interpretation: Normal sinus rhythm heart rate 88 beats per minute perforation of R-wave with ST segment coving in V3 and V4 Discharge Plan Discharge Clinical Impression: Deep vein thrombosis of lower extremity Patient Disposition: Xfer [facility] Transfer Details: Arterial Doppler negative for arterial occlusion Take Eliquis 2.5 mg twice daily Your creatinine is elevated to 1.87 Instructions: Deep Vein Thrombosis (ED) Additional Instructions: Eliquis 2.5 mg twice daily for 6-9 months Follow-up with your PCP Prescriptions: New Eliquis 2.5 mg tablet 2.5 mg PO BID Qty: 60 0RF No Action docusate sodium [Colace] 100 mg Capsule 100 mg PO BID Januvia 50 mg tablet 1 tab PO DAILY insulin glargine [Basaglar KwikPen U-100 Insulin] 100 unit/mL (3 mL) insulin pen 15 unit subcut BEDTIME Interventions: ED Discharge Assessment Last Done: 01/11/23 22:44
--- NOTE | 2023-01-11 16:15 | ECG_ITS ---
Test Reason : ? PE Blood Pressure : / mmHG Vent. Rate : 088 BPM Atrial Rate : 088 BPM P-R Int : 180 ms QRS Dur : 078 ms QT Int : 362 ms P-R-T Axes : 070 071 046 degrees QTc Int : 438 ms Sinus rhythm with Premature atrial complexes Septal infarct (cited on or before 01-JUN-2020) Inferior injury pattern ACUTE MN / STEMI Abnormal ECG When compared with ECG of 11-JUN-2022 10:38, ST elevation now present in Anterior leads Referred By: Davy Ni Electronically Signed By:HUBERT TO MD
[2023-01-11 16:24] VITALS: BMI 22.1
[2023-01-11 16:24] LABS: MANUAL DIFF FLAG NO
[2023-01-11 16:26] LABS: Basophils Percent Auto 0.2 % (0-2); Eosinophils Absolute Auto 0.1 X10*3/uL (0.0-0.4); Eosinophils Percent Auto 0.7 % (0-4); Hematocrit 41.9 % (37.0-47.0); Hemoglobin 12.7 g/dl (12.0-16.0); Imm Gran Abs Auto 0.28 X10*3/uL (0.00-0.03); Imm Gran Pct Auto 1.7 % (0.0-0.4); Lymphocytes Absolute Auto 1.3 X10*3/uL (1.2-4.9); Lymphocytes Percent Auto 7.6 % (20-40); Mean Corpuscular HGB Conc 30.3 g/dl (31.0-35.0); Mean Corpuscular Volume 85.9 fL (80.0-98.0); Monocytes Absolute Auto 0.7 X10*3/uL (0.1-1.2); Monocytes Percent Auto 4.3 % (2-11); Neutrophils Absolute Auto 14.2 x10*3/uL (2.0-8.3); Neutrophils Percent Auto 85.5 % (45-73); Platelet Count 228 X10*3/uL (160-400); Red Blood Count 4.88 X10*6/uL (4.20-5.50); Red Cell Distribution Width 14.5 % (11.0-16.0); White Blood Count 16.6 X10*3/uL (4.8-10.8)
[2023-01-11 16:30] LABS: INTERNATIONAL NORM RATIO 1.1 (0.9-1.1); Prothrombin Time 12.6 SEC (10.0-13.1)
[2023-01-11] MEDS: Heparin Sodium,Porcine 5,000 UNIT/ML VIAL 5000 UNIT IVPUSH (16:31)
[2023-01-11 16:33] LABS: Partial Thromboplastin Time 29.2 SEC (26.0-36.4)
[2023-01-11 16:43] VITALS: TEMP 36.1
[2023-01-11] MEDS: Heparin Sodium,Porcine/1/2NS 25,000 UNIT/250 ML IV.SOLN 8.96 UNIT IVCONT (16:47)
[2023-01-11 17:04] LABS: Alanine Aminotransferase 10 U/L (0-31); Alkaline Phosphatase 102 U/L (39-117); Anion Gap 20 (12-20); Aspartate Amino Transferase 16 U/L (5-31); Bilirubin Total 0.9 mg/dL (0.0-1.0); Blood Urea Nitrogen 87 mg/dL (9-16); Calcium 9.7 mg/dL (8.4-10.2); Carbon Dioxide 24 mmol/L (22-29); Chloride 112 mmol/L (96-108); Creatinine Clr Calc Pharmacy 22.9; Estimated Glomerular Filt Rate 26; Glucose Random 473 mg/dL (60-115); Potassium 3.8 mmol/L (3.3-5.1); Sodium 152 mmol/L (135-145); Total Protein 7.7 g/dL (6.5-8.0)
[2023-01-11 17:09] LABS: COVID-19 Test Negative (Negative); IDNOW Serial# 08D9AD1C
[2023-01-11 17:14] LABS: Glucose, Whole Blood 411 mg/dL (60-115)
[2023-01-11] MEDS: 0.9 % Sodium Chloride 1,000 ML 999 ML IV (17:15)
[2023-01-11] MEDS: Insulin Lispro 100 UNIT/ML 3 ML VIAL 14 UNIT SUBCUT (17:16)
[2023-01-11 19:28] LABS: Glucose, Whole Blood 326 mg/dL (60-115)
[2023-01-11] MEDS: Insulin Glargine,Hum.rec.anlog 100 UNIT/ML 10 ML VIAL 15 UNIT SUBCUT (20:39)
[2023-01-11] MEDS: Insulin Lispro 100 UNIT/ML 3 ML VIAL 8 UNIT SUBCUT (20:40)
--- NOTE | 2023-01-11 20:50 | PC.NURSE ---
Pt. pulled out IV with heparin running. Pt. pulled off all clothes and has reportedly pulled off cardiac monitors during the previous shift. Purewick placed to prevent skin breakdown as pt. is incontinent. Attempting to reestblish IV access. Pt. medicated with insulin per DEC.
[2023-01-11 20:56] VITALS: BP 112/50; PULSE 88; RESP 16; TEMP 36.3; O2SAT 95
--- NOTE | 2023-01-11 21:04 | PHA.MEDREC ---
Pharmacy Consult ? Medication Reconciliation Pharmacy has completed the medication reconciliation.
--- NOTE | 2023-01-11 21:18 | PC.NURSE ---
Per Provider, okay to d/c heparin drip as he spoke to family and pt. will be d/c'ing back to facility and will start on eloquis. Pt. currently lying in bed with purewick in place and blankets covering her. No distress noted.
--- NOTE | 2023-01-11 21:54 | P.EN_ITS ---
Event Note Date of Service: 01/11/23 Event Note: This is an 82-year-old female with past medical history of advanced dementia, diabetes, who was sent to the hospital from shelter for bilateral DVT. Was asked to admit this patient for management of DVT. Given patient's extensive dementia, and baseline immobility and nonverbal status, I discussed the code status and further clinical evaluation with her family including her and their daughter over the phone. I explained in detail the extent of the bilateral DVTs, and potential for PE that can potentially cause her to go into cardiac arrest in asked if they want the patient to have further testing including V/Q scan as well as possible filter placement. They both felt that patient is better off going back to shelter with p.o. anticoagulation. I discussed the benefit and the risk of having an anticoagulation pill including spontaneous bleed. They both understand and want patient to be sent back to shelter. Patient has significant dementia, pulling out IV lines, not really following command. Patient is hemodynamically stable, does not appear in respiratory distress, no tachycardia or tachypnea. Discussed with ED physician. Patient is being discharged back to shelter. For full details please see ED physician note Time Spent With Patient Time: Total time managing care of this patient today ____ minutes.
--- NOTE | 2023-01-11 23:00 | PC.NURSE ---
Nurse to nurse report given to RN at [facility].
[2023-01-11 23:20] LABS: Troponin-I High Sensitivity 78.5 ng/L (<3.5-17.0)
== END 2023-01-11 22:44 | disposition skilled nursing facility (03) ==
PROVIDERS: Emergency Provider Internal Medicine; PCP Internal Medicine
DX: I82.403 Acute embolism and thrombosis of unspecified deep veins of lower extremity, bilateral (principal); M79.672 Pain in left foot; M79.671 Pain in right foot; E11.9 Type 2 diabetes mellitus without complications; R60.0 Localized edema; R94.31 Abnormal electrocardiogram [ECG] [EKG]; Z20.822 Contact with and (suspected) exposure to COVID-19; Z20.828 Contact with and (suspected) exposure to other viral communicable diseases; Z79.899 Other long term (current) drug therapy; Z79.4 Long term (current) use of insulin
CPT/HCPCS: 36415; 80053; 82947; 84484; 85025; 85610; 85730; 87635; 93005; 93925; 96361; 96365; 96366; 96375; 99284; J1643